=== PATIENT | male | born 1990 | race African-American/Black ===

== ENCOUNTER 2023-04-03 00:48 | Emergency (ER) | payer BC, SELFPAY ==
[2023-04-03 00:53] VITALS: BP 134/83; PULSE 78; RESP 18; TEMP 36.8; O2SAT 99; BMI 37.0
--- NOTE | 2023-04-03 01:05 | PC.NURSE ---
pt presents to ED because patient states that on monday he was on break at work and there was a [place] that had been cut and the roots were sticking up out of ground. patient tripped and scrapped left calf on roots. patient currently has bruising, swelling, abrasions, and warmth to left calf. patient denies workmans comp claim.
--- NOTE | 2023-04-03 01:16 | ED.LOWEXI1 ---
HPI - Extremity Injury (Lower) General Chief Complaint: Extremity Injury, Lower Stated Complaint: LEFT LEG INJURY Time Seen by Provider: 04/03/23 00:58 Source: patient Mode of arrival: walk-in Limitations: no limitations History of Present Illness HPI Narrative: patient states he fell and struck his left leg against tree roots. Developed a large amount of swelling and bruising of the leg. States the swelling has gone down. Tonight his family seen the leg and were concerned that there was still some swelling and wanted him to have it checked. States it feels warm to him and he still has some pain Related Data Home Medications Medication Instructions Recorded Confirmed No Known Home Medications 04/03/23 04/03/23 Allergies Allergy/AdvReac Type Severity Reaction Status Date / Time No Known Drug Allergies Allergy Verified 04/03/23 00:56 Review of Systems ROS Status of ROS 10 or more systems reviewed and unremarkable except as noted in history and below Exam Constitutional Vital Signs, click to edit/add: Last Vital Signs Temp 98.2 F 04/03/23 00:53 Pulse 78 04/03/23 00:53 Resp 18 04/03/23 00:53 BP 134/83 04/03/23 00:53 Pulse Ox 99 04/03/23 00:53 O2 Del Method Room Air 04/03/23 00:53 Common normals: no apparent distress, average body habitus, oriented x3, no limitations and healthy appearing Eye Common normals: EOMs intact bilaterally and conjunctivae normal Respiratory Common normals: normal respiratory effort, no retractions and no use of accessory muscles Extremity Other: faint ecchymosis and mild swelling of left lower leg just lateral to the kemp. Mild tenderness at best. Not warm or erythematous Neuro Common normals: oriented x3, CN's II-XII intact bilaterally, moves all extremities, no focal motor deficits and no sensory deficits noted Psych Appearance: grossly normal Course Vital Signs Vital signs: Vital Signs Temperature 98.2 F 04/03/23 00:53 Pulse Rate 78 04/03/23 00:53 Respiratory Rate 18 04/03/23 00:53 Blood Pressure 134/83 04/03/23 00:53 Pulse Oximetry 99 04/03/23 00:53 Oxygen Delivery Method Room Air 04/03/23 00:53 Temperature 98.2 F 04/03/23 00:53 Pulse Rate 78 04/03/23 00:53 Respiratory Rate 18 04/03/23 00:53 Blood Pressure 134/83 04/03/23 00:53 Pulse Oximetry 99 04/03/23 00:53 Oxygen Delivery Method Room Air 04/03/23 00:53 MDM - Extremity Injury (Lower) MDM Narrative Medical decision making narrative: patient fell sustaining a contusion left leg last week. Patient states the swelling has gone down significantly but tonight when he was wearing shorts and family see his leg they were concern about the swelling having not resolved completely and recommended he have it checked out. exam with mild tenderness. Resolving ecchymosis. No findings of infection on inspection and labs c/w no infection as well. Patient reassured and discharged to follow up with his family doctor Discharge Plan Discharge Chief Complaint: Extremity Injury, Lower Clinical Impression: Contusion of left lower extremity Patient Disposition: Home, Self-Care Prescriptions / Home Meds: No Action No Known Home Medications Instructions: Contusion in Adults (ED) Additional Instructions: follow up with your doctor in 2-3 days for recheck Stand Alone Forms: Portal Instructions Referrals: LUCIANA HER [Primary Care Provider] - 1 week
[2023-04-03 01:38] LABS: Basophils Percent Auto 0.3 % (0.2-2.0); Eosinophils Absolute Auto 0.1 10^3/uL (0.0-0.7); Eosinophils Percent Auto 1.2 % (0.9-7.0); Hematocrit 44.4 % (42.0-54.0); Hemoglobin 15.3 g/dL (14.0-18.0); Immature Granulocytes Abs Auto 0.01 10^3/uL (0.00-0.03); Immature Granulocytes Pct Auto 0.1 % (0.0-0.5); Lymphocytes Percent Auto 44.2 % (20.5-60.0); Mean Corpuscular HGB Conc 34.5 g/dL (29.9-35.2); Mean Corpuscular Hemoglobin 27.8 pg (25.9-34.0); Mean Corpuscular Volume 80.7 fL (80.0-94.0); Mean Platelet Volume 9.7 fL (9.5-13.5); Monocytes Absolute Auto 0.5 10^3/uL (0.3-0.8); Monocytes Percent Auto 7.2 % (1.7-12.0); Neutrophils Absolute Auto 3.2 10^3/uL (1.4-6.5); Platelet Count 254 10^3/uL (150-450); Red Cell Distribution Width 12.4 % (11.0-15.0); White Blood Count 6.9 10^3/uL (4.0-11.0)
[2023-04-03 01:47] LABS: Anion Gap 10.5; BUN Creatinine Ratio 16.7; C Reactive Protein <0.2 mg/dL (<=1.0); Calcium 8.2 mg/dL (8.5-10.1); Carbon Dioxide 31.1 mmol/L (21.0-32.0); Chloride 103 mmol/L (98-107); Estimated GFR (African America >60 (>=60); Estimated GFR (Non-African Ame >60 (>=60); Glucose 124 mg/dL (74-106); Potassium 3.6 mmol/L (3.5-5.1); Sodium 141 mmol/L (136-145)
== END 2023-04-03 02:04 | disposition home or self-care (01) ==
PROVIDERS: Emergency Provider Internal Medicine; PCP Family Medicine
DX: S80.12XA Contusion of left lower leg, initial encounter (principal); W19.XXXA Unspecified fall, initial encounter
CPT/HCPCS: 36415; 80048; 85025; 86140; 99283

== ENCOUNTER 2025-03-08 21:28 | Emergency (ER) | payer BC, SELFPAY ==
[2025-03-08 21:32] VITALS: BP 124/82; PULSE 69; TEMP 37.2; O2SAT 99; BMI 38.7
--- OUTSIDE RECORDS SUMMARY | 2025-03-08 21:41 | XMS_ITS | Patient Health Record ---
Author Organization [facility] es Address [address] [place] [address] Support Name Relationship Address Phone HOODJAMES Emergency Contact , [place] Unavail able TRISH MORATAYA Guarantor Unknown [phone] Allergies No Known Allergies Reason For Referral No Information Medications Medication SIG (Take, Route, Frequency, Duration) Notes Start Date End Date Status Dopmupfc-Cuqywdzex-HN 3.5-51663-3 4 drops into affected ear Otic Three times a day; Duration: 5 days 05/17/2023 Active Social History Tobacco Use: Social History Observation Description Date Details (start date - stop date) Never Smoker NA - NA Tobacco Screen: Question Answer Notes Are you a: never smoker Alcohol Screening: Question Answer Notes Did you have a drink containing alcohol in the p ast year? No Points 0 Interpretation Negative Plan Of Treatment No Information Insurance Providers Payer Name Payer Address Payer Phone Subscriber Number Group Number Insured Name Patient Relationship to Insured Coverage Start Date Coverage End Date ANTHEM Primary [address] [place] [address] [id number] TRISH MORATAYA Self - patient is the insured 3 Medical (General) History Surgical History Surgery Date(Month/Year) tonsillectomy meniscus- L L hand Hospitalization History Reason Date(Month/Year) dehydration pneumonia see surgery above
--- OUTSIDE RECORDS SUMMARY | 2025-03-08 21:41 | XMS_ITS | Encounter Summary ---
Author Organization [facility] Address [address] [facility] [place] [address] Care Team Providers Care Tube Backer Name Role Phone Allyn Pichardo MD Primary Care Provider [phone] Encounter Details Date Type Department Care Team (Late st Contact Info) Description 09/25/2024 [facility] [address] [place] [phone] Allyn Pichardo MD [address] [place] [address] Social History Tobacco Use Types Packs/Day Years Used Date Smoking Tobacco: Never Smokeless Tobacco: Never B1300 Health Literacy Answer Date Recor ded How often do you need to hav e someone help you when you read instructions, pamphlets, or other written material from your doctor or pharmacy? Never 02/27/2024 Social Connection and Isolat ion Panel [NHANES] Answer Date Recorded In a typical week, how many times do you talk on the phone with family, friends, or neighbors? More than three times a week 02/27/2024 How often do you get togethe r with friends or relatives? More than three times a week 02/27/2024 How often do you attend [facility] or pentecostalism services? 1 to 4 times per year 02/27/2024 Do you belong to any clubs o r organizations such as scientologist groups, unions, fraternal or athletic groups, or school groups? No 02/27/2024 Attends Club or Organization Meetings Not on nguyen e 02/27/2024 Are you , , di vorced, , never , or living with a partner? 02/27/2024 AUDIT-C Answer Date Recorded Q1: How often do you have a drink containing alcohol? Never 02/27/2024 Q2: How many drinks containi ng alcohol do you have on a typical day when you are drinking? Patient does not drink Q3: How often do you have si x or more drinks on one occasion? Never 02/27/2024 Overall Financial Resource Strain (CARDIA) Answe r Date Recorded How hard is it for you to pa y for the very basics like food, housing, medical care, and heating? Very hard 02/27/2024 [facility] of Occupat ional [place] [facility] - Occupational Stress Questionnaire Answer Date Recorded Do you feel stress - tense, restless, nervous, or anxious, or unable to sleep at night because your mind is troubled all the time - these days? Only a little 02/27/2024 Exercise Vital Sign Answer Date Recorde d On average, how many days pe r week do you engage in moderate to strenuous exercise (like a brisk walk)? 4 days 02/27/2024 On average, how many minutes do you engage in exercise at this level? 10 min 02/27/2024 Hunger Vital Sign Answer Date Recorded Within the past 12 months, y ou worried that your food would run out before you got the money to buy more. Sometimes true Within the past 12 months, t he food you bought just didn't last and you didn't have money to get more. Often true PRAPARE - Transportation Answer Date Re corded In the past 12 months, has l ack of transportation kept you from medical appointments or from getting medications? No 02/04 In the past 12 months, has l ack of transportation kept you from meetings, work, or from getting things needed for daily living? No 02/27/2024 Housing Stability Vital Sign Answer Thomas e Recorded In the last 12 months, was t here a time when you were not able to pay the mortgage or rent on time? Yes 02/27/2024 In the past 12 months, how m any times have you moved where you were living? 0 02/27/2024 At any time in the past 12 m [facility], were you homeless or living in a chcf (including now)? No 02/27/2024 Sex and Gender Information Value Date Recorded Sex Assigned at Male 02/27/2024 4:32 AM EDT Legal Sex Male 6:48 PM EDT Gender Identity Male 02/27/2024 4:32 AM EDT Sexual Orientation Straight 02/27/2024 4: 32 AM EDT documented as of this encounter Plan of Treatment Not on file documented as of this encounter Visit Diagnoses Not on filedocumented in this encounter Care Teams Tube Backer Relationship Specialty Start Date End Date Allyn Pichardo MD [address] [place] [address] PCP - General Family Medicine 10/11/22 documented as of this encounter
--- OUTSIDE RECORDS SUMMARY | 2025-03-08 21:41 | XMS_ITS | Encounter Summary ---
Author Organization [facility] Address [address] [facility] [place] [address] Care Team Providers Care Engine Assembly Supervisor Name Role Phone Allyn Pichardo MD Primary Care Provider [phone] Encounter Details Date Type Department Care Team (Late st Contact Info) Description 09/24/2024 [facility] [address] [place] [phone] Allyn Pichardo MD [address] [place] [address] Social History Tobacco Use Types Packs/Day Years [...] week 02/27/2024 How often do you attend [facility] or latter-day services? 1 to 4 times per year 02/27/2024 Do you belong to any clubs o r organizations such as cheondoism groups, unions, fraternal or athletic groups, or [...] medical care, and heating? Very hard 02/27/2024 [facility] of Occupat ional [facility] - Occupational Stress Questionnaire Answer Date Recorded [...] any time in the past 12 m [facility], were you homeless or living in a penitentiary (including now)? No 02/27/2024 Sex and Gender [...] on filedocumented in this encounter Care Teams Engine Assembly Supervisor Relationship Specialty Start Date End Date Allyn Pichardo MD [address] [place] [address] PCP - General Family Medicine 10/11/22 documented as of this encounter
--- OUTSIDE RECORDS SUMMARY | 2025-03-08 21:41 | XMS_ITS | Clinical Summary ---
Author Organization [facility] Address [address] [facility] [place] [address] Care Team Providers Care Hog Killer Name Role Phone Allyn Pichardo MD Primary Care Provider [phone] Allergies No known active allergies Medications No known medications Active Problems Problem Noted Date Diagnosed Date Acute seasonal allergic rhinitis due to pollen 0 02/14/2024 Morbid (severe) obesity due to excess calories 0 02/14/2024 Esophageal reflux 12/26/2007 Other allergic rhinitis 12/26/2007 Immunizations Immunization Administration Dates Next Due DTaP, Unspecified 12/29/1993,03/12/1993,01/11/19 93,1992 Hib / Hep B 12/29/1993,03/12/1993,01/11/1993 ,1992 IPV 12/29/1993,01/11/1993,1992 MMR 01/26/2005,12/29/1993 Family History Relation Name Status Comments Father Alive Mother Alive Social History Tobacco Use Types Packs/Day Years Used Date Smoking Tobacco: Never Smokeless Tobacco: Never Tobacco Cessation:Counseling Given: Not Answered B1300 Health Literacy Answer Date Recor ded [...] week 02/27/2024 How often do you attend chur or sabianism services? 1 to 4 times per year 02/27/2024 Do you belong to any clubs o r organizations such as uatsdin groups, unions, fraternal or athletic groups, or [...] medical care, and heating? Very hard 02/27/2024 [facility] of Occupat ional Health - Occupational Stress Questionnaire Answer Date Recorded [...] any time in the past 12 m [facility], were you homeless or living in a [place] [facility] [place] (including now)? No 02/27/2024 Sex and Gender Information Value Date Recorded Sex Assigned at Male 02/27/2024 4:32 AM EDT Legal Sex Male 6:48 PM EDT Gender Identity Male 02/27/2024 4:32 AM EDT Sexual Orientation Straight 02/27/2024 4: 32 AM EDT Last Filed Vital Signs Vital Sign Reading Time Taken Comments Blood Pressure 124/70 02/27/2024 8:33 AM EDT Pulse 75 02/27/2024 8:33 AM EDT Temperature - - Respiratory Rate - - Oxygen Saturation 97% 02/27/2024 8:33 AM EDT Inhaled Oxygen Concentration - - Weight 120 kg (265 lb) 02/27/2024 8:33 AM EDT Height 177.8 cm (5' 10 ) 02/27/2024 8:33 AM EDT Body Mass Index 38.02 02/27/2024 8:33 AM EDT Plan of Treatment Health Maintenance Due Date Last Done Comments Influenza Vaccine (#1) 2025 Insurance BS Care Teams Hog Killer Relationship Specialty Start Date End Date Allyn Picahrdo MD [address] [place] [address] PCP - General Family Medicine 10/11/22
--- OUTSIDE RECORDS SUMMARY | 2025-03-08 21:41 | XMS_ITS | Encounter Summary ---
Author Organization [facility] Address [address] [facility] [place] [address] Care Team Providers Care Fretted Instruments Inspector Name Role Phone Allyn Pichardo MD Primary Care Provider [phone] Encounter Details Date Type Department Care Team (Late st Contact Info) Description 12/05/2024 Abstract [facility] [address] [place] [phone] Allyn Pichardo MD [address] [place] [address] Social History Tobacco Use Types Packs/Day Years [...] week 02/27/2024 How often do you attend [facility] or zoroastrianism services? 1 to 4 times per year 02/27/2024 Do you belong to any clubs o r organizations such as christianity groups, unions, fraternal or athletic groups, or [...] medical care, and heating? Very hard 02/27/2024 [facility] of Occupat ional [facility] - Occupational Stress Questionnaire Answer Date [...] any time in the past 12 m [facility], were you homeless or living in a long-term (including now)? No 02/27/2024 Sex and Gender [...] on filedocumented in this encounter Care Teams Fretted Instruments Inspector Relationship Specialty Start Date End Date Allyn Pichardo MD [address] [place] [address] PCP - General Family Medicine 10/11/22 documented as of this encounter
--- OUTSIDE RECORDS SUMMARY | 2025-03-08 21:41 | XMS_ITS | Encounter Summary ---
Author Organization [facility] Address [address] [facility] [place] [address] Care Team Providers Care Cullet Trucker Name Role Phone Allyn Pichardo MD Primary Care Provider [phone] Encounter Details Date Type Department Care Team (Late st Contact Info) Description 09/24/2024 Abstract [facility] [address] [place] [phone] Allyn Pichardo MD [address] [place] [address] Social History Tobacco Use Types Packs/Day Years [...] week 02/27/2024 How often do you attend [facility] or rastafarian services? 1 to 4 times per year 02/27/2024 Do you belong to any clubs o r organizations such as alevism groups, unions, fraternal or athletic groups, or [...] medical care, and heating? Very hard 02/27/2024 [facility] of Occupat ional [facility] - Occupational Stress Questionnaire Answer [...] any time in the past 12 m [facility], were you homeless or living in a detention (including now)? No 02/27/2024 Sex and Gender [...] on filedocumented in this encounter Care Teams Cullet Trucker Relationship Specialty Start Date End Date Allyn Pichardo MD [address] [place] [address] PCP - General Family Medicine 10/11/22 documented as of this encounter
--- OUTSIDE RECORDS SUMMARY | 2025-03-08 21:42 | XMS_ITS | CCD ---
Author Organization [facility] Care Team Providers Care Rn Lvn Name Role Phone ALLYN HER Primary Care Physician PABLITO BASS Attending Unavailable Allyn Her MD Primary Care Provider Neil Hutchison Attending Unavailable Clemente RODRIGUEZ Attending Clemente Iyer Attending Clemente Iyer Attending Clemente Iyer Attending Unavailable Neil Hutchison Attending Unavailable Neil Hutchison Attending Unavailable Allergies Allergy Classification Reported Allergen(s) Allergy Type Date of Onset Reaction(s) Facility (6 sources) Mometasone; Translations: [mometasone nasal] Drug Allergy Irritation (qualifier value) [facility] (3 sources) No Known Medication Allergies; Translations: [No Known Medication Allergies] Propensity to adverse reactions (disorder) [facility] Repository Medications Current Medications Medication Drug Class(es) Dates Sig (Normalized) Sig (Original) cephalexin 500 mg oral capsule (2 sources) Cephalosporin Antibacterial Start: 12-04-2024 End: 12-11-2024 take 1 capsule by mouth four times daily Keflex 500 mg Cap 500 mg = 1 cap(s), Oral, QID, X 7 day(s), # 28 cap(s), Refills(s) 0, Pharmacy: [facility]/pharmacy #[id number], 180.3, cm, 12/04/24 16:57:00 EDT, Height/Length Dosing, 125, kg, 12/04/24 16:57:00 EDT, Weight Dosing Start Date: 12/04/24 Stop Date: 12/11/24 Status: Ordered Quantity: 28.0 Unit: cap(s) Repeat number: 1 Start: 08-05-2024 End: 08-10-2024 take 1 capsule by mouth twice daily at mealtime Keflex 500 mg Cap 500 mg = 1 cap(s), Oral, BID, start with first meal after procedure, X 5 day(s), # 10 cap(s), Refills(s) 0, [id number] 180, cm, 08/05/24 12:50:00 EST, Height/Length Dosing, 125, kg, 08/05/24 12:50:00 EST, Weight Dosing Start Date: 08/05/24 Stop Date: 08/10/24 Status: Ordered doxycycline hyclate 100 mg oral tablet (1 source) Tetracycline-class Drug Start: 12-04-2024 End: 12-11-2024 take 1 tablet by mouth every twelve hours doxycycline hyclate 100 mg Tab 100 mg = 1 tab(s), Oral, q12hr, X 7 day(s), # 14 tab(s), Refills(s) 0, [id number] 180.3, cm, 12/04/24 16:57:00 EDT, Height/Length Dosing, 125, kg, 12/04/24 16:57:00 EDT, Weight Dosing Start Date: 12/04/24 Stop Date: 12/11/24 Status: Ordered Quantity: 14.0 Unit: tab(s) Repeat number: 1 hydrOXYzine hydrochloride 25 mg oral tablet (2 sources) Antihistamine Start: 09-23-2024 take 1 tablet by mouth four times daily as needed for anxiety hydrOXYzine hydrochloride 25 mg Tab 25 mg = 1 tab(s), Oral, QID, PRN for anxiety, # 20 tab(s), Refills(s) 0, [id number], 180, cm, 09/23/24 16:11:00 EDT, Height/Length Dosing, 125, kg, 09/23/24 16:11:00 EDT, Weight Dosing Start Date: 09/23/24 Status: Ordered Quantity: 20.0 Unit: tab(s) Repeat number: 1 Problems Problem Classification Problem Date Documented Date Episodic/Chronic Anxiety disorders (1 source) Anxiety disorder; Translations: [Anxiety disorder, unspecified] Onset: 09-23-2024 Chronic Cardiac dysrhythmias (1 source) Palpitations; Translations: [Palpitations] Onset: 09-23-2024 Episodic Contraceptive and procreative management (3 sources) Patient encounter status; Translations: [Encounter for other general counseling and advice on contraception] Onset: 08-05-2024 02-27-2024 Episodic Diseases of mouth; excluding dental (1 source) Recurrent aphthous ulcer; Translations: [Recurrent oral aphthae] Onset: 11-13-2021 Episodic Esophageal disorders (3 sources) Gastroesophageal reflux disease; Translations: [Gastro-esophageal reflux disease without esophagitis] Onset: 12-26-2007 02-14-2024 Chronic Other lower respiratory disease (1 source) Dyspnea; Translations: [Shortness of breath] Onset: 09-23-2024 Episodic Other nutritional; endocrine; and metabolic disorders (5 sources) Obesity caused by energy imbalance; Translations: [Morbid (severe) obesity due to excess calories] Onset: 02-14-2024 02-27-2024 Chronic Other upper respiratory disease (5 sources) Allergic rhinitis due to pollen; Translations: [Allergic rhinitis due to pollen] Onset: 02-14-2024 02-27-2024 Chronic Other upper respiratory disease (3 sources) Allergic rhinitis; Translations: [Other allergic rhinitis] Onset: 12-26-2007 02-14-2024 Chronic Skin and subcutaneous tissue infections (1 source) Cellulitis; Translations: [Cellulitis, unspecified] Onset: 12-04-2024 Episodic Results Test Name Value Interpretation Reference Range Facility ED Clinical Summaryon 2024 ED Clinical Summary ED Clinical Summary [place] [id number] ED Clinical Summary Person Information Name: CRISPIN MORATAYA Noah Rhina/[facility] Age: 34 Years : 1990 Sex: Male Language: Sinhala PCP: ALLYN HER MD Marital Status: Phone: [phone] Visit Id: Visit Reason: Skin problem; INSECT BITE/ AND OR STING Speciality: Acuity: 4 Enc Type: Emergency Med Service: Emergency Arrival: 12/04/2024 16:51:15 Discharge: 12/04/2024 18:10:41 LOS: 000 01:19 Checkin: 12/04/2024 16:51:15 Checkout: 12/04/2024 18:10:41 Dispo Type: Home (Routine DC) EVENTS: Event Name Event Status Request Date/Time Start Date/Time Complete Date/Time Arrive Complete 12/04/2024 16:51:15 12/04/2024 16:51:15 12/04/2024 16:51:15 Document Home Meds Request 12/04/2024 16:51:15 Triage Complete 12/04/2024 16:51:15 12/04/2024 16:57:30 12/04/2024 16:57:30 Bed Assign Complete 12/04/2024 16:52:30 12/04/2024 16:52:30 12/04/2024 16:52:30 Dr Exam Complete 12/04/2024 16:52:30 12/04/2024 16:54:45 12/04/2024 16:54:45 RN Exam Complete 12/04/2024 16:52:30 12/04/2024 16:59:54 12/04/2024 16:59:54 Registration Complete 12/04/2024 16:54:45 12/04/2024 16:55:50 12/04/2024 16:55:50 Reg Complete Request 12/04/2024 16:55:50 Reg Bed Request Complete 12/04/2024 16:55:50 12/04/2024 16:55:50 12/04/2024 16:55:50 Discharge Complete 12/04/2024 17:53:26 12/04/2024 18:10:46 12/04/2024 18:10:46 Transfer Complete 12/04/2024 18:10:46 12/04/2024 18:10:46 12/04/2024 18:10:46 ADDRESS: [facility] [address] [facility] [phone] PHYS DOC NOTES: MEDICAL INFORMATION: Prescriptions Given: New Medications [id number], [address] [place] [phone], [phone] cephalexin (Keflex 500 mg Cap) 1 Capsules By Mouth 4 times a day for 7 Days. Refills: 0. doxycycline (doxycycline hyclate 100 mg Tab) 1 Tablets By Mouth every 12 hours for 7 Days. Refills: 0. Medications to Continue with No Changes Other Medications hydrOXYzine (hydrOXYzine hydrochloride 25 mg Tab) 1 Tablets By Mouth 4 times a day as needed for anxiety. Refills: 0. PATIENT EDUCATION INFORMATION: Instructions: Cellulitis, Adult Follow up: With: Address: When: ALLYN [facility] [place] [address] Business (1) In 3 days 12/07/2024 Comments: Call the office of your primary care doctor to arrange for follow-up within the above-stated timeframe. Follow-up with your primary care doctor about this ED visit. You should review your labs, imaging, and diagnoses from this ED visit with your primary care physician. There are occasionally non-emergent findings that require additional follow-up after your ED visit. If you were prescribed medications you should discuss possible side-effects and drug interactions with your pharmacist. Call 911 or go to the nearest Emergency Department if you develop any new or worsening symptoms. DIAGNOSIS: Cellulitis Normal [facility] ED Note-Physicianon 12-05-19 ED Note-Physician ED Note-Physician Basic Information Time Seen: Neil Hutchison DO 12/04/2024 16:54 Chief Complaint pt c/o possible insect bite on lower abdomen. RN assessed site - area is hard and warm to touch and reddened. Denies recent fevers. Denies N/V History of Present Illness 34-year-old male to the emergency department with chief complaint of possible bite to his lower abdomen. Patient reports he first noticed it yesterday. Denies any fever, sweats, chills. He reports the area is warm to the touch initially started as a small bump. Now has surrounding redness. He denies any medical problems. Review of Systems A 10 point review of systems is negative except as noted above. Medical and Surgical History: Reviewed and noted Social history: Lives at home Tobacco: Denies Physical Exam Vitals & Measurements T: 37.1 ???C(Oral) HR: 75(Peripheral) RR: 18 BP: 141/79 SpO2: 95% HT: 180.34 cm WT: 125 kg BMI: 38.43 VITALS: I have reviewed the triage vital signs. GENERAL: Well developed, well appearing adult in no acute distress. NEURO: Alert and oriented. Moves all extremities. Face is symmetric and expressive. EYES: PERRL. No scleral icterus or conjunctival injection. No discharge. HENT: Normocephalic, atraumatic. Hearing is grossly intact. Nares grossly patent and without discharge. Mucous membranes moist. NECK: No JVD. Patient moves neck without restriction. GI/: Abdomen is soft and non-tender. Normoactive bowel sounds. EXTREMITIES: Symmetric muscle bulk. No joint swelling. No clubbing, cyanosis, or deformity. SKIN: Warm and dry. Normal turgor. No rash or lesions appreciated. Dime sized area of induration without fluctuance right lower pannus. There is some surrounding erythema. PSYCH: Mood, affect, and interaction is appropriate to the setting. Medical Decision Making Patient has cellulitis surrounding a resolved abscess. No area of fluctuance to drain. Antibiotics. Return precautions. All questions were answered. The patient was discharged home. Assessment/Plan Cellulitis (L03.90: Cellulitis, unspecified) Orders: cephalexin, 500 mg = 1 cap(s), Oral, QID, X 7 day(s), # 28 cap(s), Refills(s) 0, Pharmacy: [facility]/pharmacy #[id number], 180.3, cm, 12/04/24 16:57:00 EDT, Height/Length Dosing, 125, kg, 12/04/24 16:57:00 EDT, Weight Dosing doxycycline, 100 mg = 1 tab(s), Oral, q12hr, X 7 day(s), # 14 tab(s), Refills(s) 0, Pharmacy: [facility]/pharmacy #[id number], 180.3, cm, 12/04/24 16:57:00 EDT, Height/Length Dosing, 125, kg, 12/04/24 16:57:00 EDT, Weight Dosing Disposition Plan Patient Discharge Condition Stable Discharge Disposition Home Discharge Prescription List Prescriptions doxycycline hyclate 100 mg Tab, 100 mg= 1 tab(s), Oral, q12hr Keflex 500 mg Cap, 500 mg= 1 cap(s), Oral, QID Follow-up With When Contact Information ALLYN HER In 3 days 12/07/2024 EDT [address] [place] [address]- Business (1) Additional Instructions: Call the office of your primary care doctor to arrange for follow-up within the above-stated timeframe. Follow-up with your primary care doctor about this ED visit. You should review your labs, imaging, and diagnoses from this ED visit with your primary care physician. There are occasionally non-emergent findings that require additional follow-up after your ED visit. If you were prescribed medications you should discuss possible side-effects and drug interactions with your pharmacist. Call 911 or go to the nearest Emergency Department if you develop any new or worsening symptoms. Patient Education Cellulitis, Adult Problem List/Past Medical History Ongoing No qualifying data Historical No qualifying data Procedure/Surgical History Hand, Meniscus, Tonsillectomy and adenoidectomy. Medications Inpatient No active inpatient medications Home doxycycline hyclate 100 mg Tab, 100 mg= 1 tab(s), Oral, q12hr hydrOXYzine hydrochloride 25 mg Tab, 25 mg= 1 tab(s), Oral, QID, PRN Keflex 500 mg Cap, 500 mg= 1 cap(s), Oral, QID Allergies mometasone nasal (Irritation) Social History Alcohol - Denies Alcohol Use, 12/04/2024 Never., 07/07/2024 Substance Abuse - Denies Substance Abuse, 12/04/2024 Never., 07/07/2024 Tobacco - Denies Tobacco Use, 12/04/2024 Never (less than 100 in lifetime) Tobacco Use:., 07/07/2024 Family History Arthritis: Grandparent. Diabetes mellitus type 2: Mother. Heart disease: Grandparent. Hypertension: Grandparent. IBS - Irritable bowel syndrome: Mother. Kidney stone: Grandparent. Lung cancer: Grandparent. Migraine: Mother. Lab Results No qualifying data available. Diagnostic Results No qualifying data available. Normal [facility] Comment on above: Result Comment: Elec tronically Signed By: Neil Hutchison DO.br\Date and Time Signed: 12/04/24 19:22 EDT ED Patient Summaryon 025 ED Patient Summary ED Patient Summary [place] [id number] Patient Discharge Instructions Person Information Name: CRISPIN MORATAYA Age: 34 Years MRN: [id number] Arrival Date: 12/04/2024 16:51:15 Discharge Diagnosis: Cellulitis Primary Care Physician: ALLYN HER MD Provider Information Primary Provider: Neil Hutchison DO Advanced Atmospheric Technician:None The exam and treatment you received in the Emergency Department were for an urgent problem and are not intended as complete care. It is important that you follow up with a doctor, nurse practitioner, or physician???s nurse's assistant for ongoing care. If your symptoms become worse or you do not improve as expected and you are unable to reach your usual health care provider, you should return to the Emergency Department. We are available 24 hours a day. CRISPIN MORATAYA has been given the following list of patient education materials, prescriptions and follow-up instructions: Follow-up Instructions: With: Address: When: ALLYN HER [address] [place] [id number] [employer] (1) In 3 days 12/07/2024 Comments: Call the office of your primary care doctor to arrange for follow-up within the above-stated timeframe. Follow-up with your primary care doctor about this ED visit. You should review your labs, imaging, and diagnoses from this ED visit with your primary care physician. There are occasionally non-emergent findings that require additional follow-up after your ED visit. If you were prescribed medications you should discuss possible side-effects and drug interactions with your pharmacist. Call 911 or go to the nearest Emergency Department if you develop any new or worsening symptoms. In the event that this physician does not participate in your insurance network, please consult with your insurance company to find a nearby participating provider. Patient Education Materials: Cellulitis, Adult A MESSAGE TO ALL PATIENTS REGARDING OPIOIDS PRESCRIPTION OPIOIDS: WHAT YOU NEED TO KNOW Prescription opioids can be used to help relieve [id number] pain and are often prescribed following a surgery or injury, or for certain health conditions. These medications can be an important part of the treatment but also come with serious risks. It is important to work with your healthcare provider to make sure you are getting the safest, most effective care. WHAT ARE THE RISKS AND SIDE EFFECTS OF OPIOID USE? Prescription opioids carry serious risks of addiction and overdose, especially with prolonged use. An opioid overdose, often marked by slowed breathing, can cause sudden . The use of prescription opioids can have a number of side effects as well, even when taken as directed: ??? Tolerance???meaning you might need to take more of the medication for the same pain relief ??? Physical dependence???meaning you have symptoms of withdrawal when a medication is stopped ??? Increased sensitivity to pain ??? Constipation ??? Nausea, vomiting, and dry mouth ??? Sleepiness and dizziness ??? Confusion ??? Depression ??? Low levels of testosterone that can result in lower sex drive, energy, and strength ??? Itching and sweating RISKS ARE GREATER WITH: ??? History of drug misuse, substance use disorder, or overdose ??? Mental health conditions (such as depression or anxiety) ??? Sleep apnea ??? Older age (65 years and older) ??? Avoid alcohol while taking prescription opioids. Also, unless specifically advised by your health care provider, medications to avoid include: ??? Benzodiazepines (such as Xanax or Valium) ??? Muscle relaxants (such as Soma or Flexeril) ??? Hypnotics (such as Ambien or Lunesta) ??? Other prescription opioids KNOW YOUR OPTIONS Talk to your health care provider about ways to manage your pain that don???t involve prescription opioids. Some of these options may actually work better and have fewer risks and side effects. Options may include: ??? Pain relievers such as acetaminophen, ibuprofen, and naproxen ??? Some medication that are also used for depression or seizures ??? Physical therapy and exercise ??? Cognitive behavioral therapy, a psychological, goal-directed approach, in which patients learn how to modify physical, behavioral, and emotional triggers of pain and stress. IF YOU ARE PRESCRIBED OPIOIDS FOR PAIN: ??? Never take opioids in greater amounts or more often than prescribed. ??? Follow up with your primary health care provider. o Work together to create a plan on how to manage your pain. o Talk about ways to help manage your pain that don???t involve prescription opioids. o Talk about any and all concerns and side effects. ??? Help prevent misuse and abuse o Never sell or share prescription opioids. o Never use another person???s prescription opioids. ??? Store prescription (more content not included)... Normal [facility] ED Note-Physicianon 09-25-19 ED Note-Physician ED Note-Physician Basic Information Time Seen: Armani Tao PA-C 09/23/2024 18:07 Chief Complaint pt reports anxiety/sob/palpitati ons/and fatigue. states grandpa recently and has gone through a lot of stress. History of Present Illness Patient is a 34-year-old male that presents today for evaluation of his shortness of breath, heart palpitations, anxiety and fatigue. Patient states that his grandpa just recently and he has been going through a lot of stress. He will get moments of anxiousness and will feel short of breath especially when he is trying to take a big deep breath and feel as though he has heart palpitations. Has been feeling a little bit more rundown. Denies chest pain. Denies any nausea, vomiting, abdominal pain. Has never had this in the past. Review of Systems No other aggravating or relieving factors no other associated symptoms no other prior treatments or complaints. Family: Reviewed and noncontributory Social: lives at home Review of systems negative unless otherwise specified in the HPI. Physical Exam Vitals & Measurements T: 36.6 ???C(Oral) HR: 102(Peripheral) RR: 20 BP: 155/93 SpO2: 98% HT: 180 cm WT: 125 kg BMI: 38.58 General: The patient appears well and in no apparent distress. Patient is resting comfortably on cart. Skin: Warm, dry, no pallor noted. Head: Normocephalic, atraumatic Neck: No JVD Eye: PERRLA, EOMI ENT: Moist mucus membranes Cardiovascular: Regular rate and rhythm. Normal peripheral perfusion Respiratory: CTA bilaterally. No respiratory distress no accessory muscle use no obvious audible wheezing Chest Wall: no deformity Musculoskeletal: normal ROM, no deformity, no swelling GI: Soft no obvious distention. No rebound or rigidity. No guarding. No tenderness. Neurological: A&O moves all extremities equal strength and symmetry Psychiatric: Cooperative and appropriate Medical Decision Making Patient is a 34-year-old male who presents today for evaluation of his shortness of breath, heart palpitations, anxiety and fatigue. He just recently lost his grandpa and has been going through a lot of stress. He will get moments where he feels very anxious and will feel short of breath especially takes a big deep breath and has heart heart palpitations. And has been going through a lot of stress. He will get moments where he feels very anxious and will feel short of breath especially takes a big deep breath and has heart palpitations. Denies chest pain. Denies any other systemic signs or symptoms. On exam patient is afebrile nontoxic-appearing. SpO2 98% on room air. CTA to bilateral lung porras. RRR. Abdomen soft nontender. No swelling of bilateral lower extremities. PERRLA, EOMI. Unremarkable neuroexam. Labs are WNL including 0 and 1 hour troponin. EKG demonstrates NSR. Single view chest x-ray interpreted by myself is negative for any acute cardiopulmonary process. Discussed with the patient and unsure of the exact etiology of his symptoms at this time, however, I do believe he does have an anxiety component to this given he has been through a lot recently. Will provide him with hydroxyzine for him to try for these episodes. He will be discharged home with close follow-up with his PCP and I did provide him with cardiology to follow-up with if this continues to be a problem. Return to ED precautions were reviewed with the patient at length. Assessment/Plan Anxiety (F41.9: Anxiety disorder, unspecified) Palpitations (R00.2: Palpitations) Shortness of breath (R06.02: Shortness of breath) Orders: hydrOXYzine, 25 mg = 1 tab(s), Tab, Oral, Once, Stop date 09/23/24 19:21:00 EDT, STAT, Start date 09/23/24 19:21:00 EDT, 09/23/24 19:21:00 EDT hydrOXYzine, 25 mg = 1 tab(s), Oral, QID, PRN for anxiety, # 20 tab(s), Refills(s) 0, Pharmacy: [facility]/pharmacy #[id number], 180, cm, 09/23/24 16:11:00 EDT, Height/Length Dosing, 125, kg, 09/23/24 16:11:00 EDT, Weight Dosing Medications Administered Given hydrOXYzine hydrochloride 25 mg Tab, 25 mg, Oral Disposition Plan Patient Discharge Condition Stable Discharge Disposition Home Discharge Prescription List Prescriptions hydrOXYzine hydrochloride 25 mg Tab, 25 mg= 1 tab(s), Oral, QID, PRN Follow-up With When Contact Information Rubén Kramer In 3 days 09/26/2024 EDT [address] [place] [address]- [phone] Business (1) Additional Instructions: ALLYN HER In [address] [place] [address]- Business (1) Additional Instructions: Patient Education Managing Anxiety, Adult Shortness of Breath, Adult Palpitations Attestation Patient seen and evaluated by the physician nurse's assistant. Attending physician was present in the emergency department and supervised care. This visit was performed by both the physician and an APC. I performed all aspects of the MDM as documented. This report was transcribed using voice recognition software. Every effort was made to ensure accuracy, however, inadvertently comput (more content not included)... Normal [facility] Comment on above: Result Comment: Elec tronically Signed By: Armani Tao PA-C\.br\Date and Time Signed: 09/23/24 21:15 EDT\.br\Electronically Co-Signed By: Neil Hutchison DO\.br\Date and Time Co-Signed: 09/24/24 07:00 EDT XR Chest Single Viewon 09-24 XR Chest Single View Exam Date/Time: 09/23/2024 17:31 EDT Reason for Exam: Chest pain Report IMPRESSION: NO RADIOGRAPHIC EVIDENCE OF ACUTE INTRATHORACIC PROCESS. EXAM: XR Chest Single View History: Chest pain Technique: Portable AP view of the chest. Comparison: None available Findings: The cardiomediastinal silhouette is within normal limits. No pneumothorax, pleural effusion, or consolidation. No acute osseous abnormality. Ordering Provider: Neil Hutchison FINAL REPORT Dictated: 09/24/2024 7:18 am Viktor Chapin DO Signed (Electronic Signature): 09/24/2024 7:18 am Signed by: Viktor Chapin DO Transcribed by: HUMA Technologist: SHIRA Kelly [facility] BMPon 09-23-2024 Anion gap [Moles/Vol] 11 mmol/L Normal 6-16 [facility] Comment on above: Performed By: #### [id number] #### [facility] [address] [place] [address] Calcium [Mass/Vol] 9.1 mg/dL Normal 8.9-11.1 [facility] Comment on above: Performed By: #### [id number] #### [facility] [address] [place] [address] Chloride [Moles/Vol] 104 mmol/L Normal 101-111 [facility] Comment on above: Performed By: #### [id number] #### [facility] [address] [place] [address] CO2 [Moles/Vol] 26 mmol/L Normal 21-31 [facility] Comment on above: Performed By: #### [id number] #### [facility] [address] [place] [address] Creatinine [Mass/Vol] 0.8 mg/dL Normal 0.5-1.3 [facility] Comment on above: Performed By: #### 2 [id number] #### [facility] [address] [place] [address] Glucose [Mass/Vol] 114 mg/dL Normal 55-199 [facility] Comment on above: Performed By: #### 2 [id number] #### [facility] [address] [place] [address] Potassium [Moles/Vol] 3.7 mmol/L Normal 3.5-5.3 [facility] Comment on above: Performed By: #### 2 [id number] #### [facility] [address] [place] [address] Sodium [Moles/Vol] 137 mmol/L Normal 135-145 [facility] Comment on above: Performed By: #### 2 [id number] #### [facility] [address] [place] [address] Urea nitrogen [Mass/Vol] 10 mg/dL Normal 5-21 [facility] Comment on above: Performed By: #### 2 [id number] #### [facility] [address] [place] [address] Urea nitrogen/Creatinine [Mass ratio] 12 No Units Normal 10-20 [facility] Comment on above: Performed By: #### 2 [id number] #### [facility] [address] [place] [address] CBC w/ Auto Diffon 5 Basophils/100 WBC (Bld) 0.3 % Normal 0.0-2.0 [facility] Comment on above: Performed By: #### 2 [id number] #### [facility] [address] [place] [address] Basophils/Leukocytes Auto (Bld) [Pure # fraction] 0.0 E9/L Normal 0.0-0.2 [facility] Comment on above: Performed By: #### 2 [id number] #### [facility] [address] [place] [address] Eosinophils (Bld) [#/Vol] 0.1 E9/L Normal 0.0-0.5 [facility] Comment on above: Performed By: #### 2 [id number] #### [facility] [address] [place] [address] Eosinophils/100 WBC (Bld) 0.7 % Normal 0.0-8.0 [facility] Comment on above: Performed By: #### 2 [id number] #### [facility] [address] [place] [address] Erythrocyte distribution width (RBC) [Ratio] 13.3 % Normal 10.9-14.2 [facility] Comment on above: Performed By: #### 2 [id number] #### [facility] [address] [place] [address] Hematocrit (Bld) [Volume fraction] 45.0 % Normal 37.7-49.0 [facility] Comment on above: Performed By: #### 2 [id number] #### [facility] [address] [place] [address] Hemoglobin (Bld) [Mass/Vol] 15.7 g/dL Normal 13.5-17.5 [facility] Comment on above: Performed By: #### 2 [id number] #### [facility] [address] [place] [address] Lymphocytes (Bld) [#/Vol] 2.4 E9/L Normal 1.0-4.0 [facility] Comment on above: Performed By: #### 2 [id number] #### [facility] [address] [place] [address] Lymphocytes/100 WBC (Bld) 28.5 % Normal 14.0-50.0 [facility] Comment on above: Performed By: #### 2 [id number] #### [facility] [address] [place] [address] MCH (RBC) [Entitic mass] 27.9 pg Normal 27.0-34.0 [facility] Comment on above: Performed By: #### 2 [id number] #### [facility] [address] [place] [address] MCHC (RBC) [Mass/Vol] 34.8 g/dL Normal 31.4-36.0 [facility] Comment on above: Performed By: #### 2 [id number] #### [facility] [address] [place] [address] MCV (RBC) [Entitic vol] 80.1 fL Normal 80.0-100.0 [facility] Comment on above: Performed By: #### 2 [id number] #### [facility] [address] [place] [address] Monocytes (Bld) [#/Vol] 0.5 E9/L Normal 0.2-1.0 [facility] Comment on above: Performed By: #### 2 [id number] #### [facility] [address] [place] [address] Neutrophils (Bld) [#/Vol] 5.4 E9/L Normal 2.0-7.5 [facility] Comment on above: Performed By: #### 2 [id number] #### [facility] [address] [place] [address] Neutrophils/100 WBC (Bld) 64.3 % Normal 36.0-75.0 [facility] Comment on above: Performed By: #### 2 [id number] #### [facility] [address] [place] [address] Platelet mean volume (Bld) [Entitic vol] 8.3 fL Normal 6.4-10.8 [facility] Comment on above: Performed By: #### 2 [id number] #### [facility] [address] [place] [address] Platelets (Bld) [#/Vol] 274.0 E9/L Normal 150.0-500.0 [facility] Comment on above: Performed By: #### 2 [id number] #### [facility] [address] [place] [address] RBC (Bld) [#/Vol] 5.6 E12/L Normal 4.3-5.9 [facility] Comment on above: Performed By: #### 2 [id number] #### [facility] [address] [place] [address] WBC corrected for nucl RBC Auto (Bld) [#/Vol] 8.5 E9/L Normal 4.0-11.0 [facility] Comment on above: Performed By: #### 2 [id number] #### [facility] [address] [place] [address] CHEMISTRYOrdered By: SYSTEM SYSTEM on 09-23-2024 Troponin HS 3.50 pg/mL Low 15.90 - 38.40 pg/mL [facility] Comment on above: Interpretive Data: T he 95% CI (Confidence Interval) PPV (Positive Predictive Value) for myocardial infarction in females is 38 pg/mL, in males 51 pg/mL. The results should be used in conjunction with clinical conditions of myocardial infarction. (Access High Sensitivity Troponin I Instructions For Use, [employer], January 2018) Anion gap [Moles/Vol] 11 mmol/L Normal 6 - 16 mEq/L R emisol Chem Calcium [Mass/Vol] 9.1 mg/dL Normal 8.9 - 11. 1 mg/dL [facility] Chloride [Moles/Vol] 104 mmol/L Normal 101 - 1 11 mmol/L [facility] CO2 [Moles/Vol] 26 mmol/L Normal 21 - 31 mmol/L [facility] Creatinine [Mass/Vol] 0.8 mg/dL Normal 0.5 - 1.3 mg/dL [facility] eGFR 121 mL/min/1.73 m2 Normal >=59mL/mi n/1. 73 m2 [facility] Glucose [Mass/Vol] 114 mg/dL Normal 55 - 199 mg/dL [facility] Potassium [Moles/Vol] 3.7 mmol/L Normal 3.5 - 5.3 mmol/L [facility] Sodium [Moles/Vol] 137 mmol/L Normal 135 - 145 mmol/L [facility] Troponin HS 3.40 pg/mL Low 15.90 - 38.40 pg/mL [facility] Comment on above: Interpretive Data: T he 95% CI (Confidence Interval) PPV (Positive Predictive Value) for myocardial infarction in females is 38 pg/mL, in males 51 pg/mL. The results should be used in conjunction with clinical conditions of myocardial infarction. (Access High Sensitivity Troponin I Instructions For Use, [employer], January 2018) Urea nitrogen [Mass/Vol] 10 mg/dL Normal 5 - 21 mg/dL [facility] Urea nitrogen/Creatinine [Mass ratio] 12 mg/mg Normal 10 - 20 [facility] COAGULATIONOrdered By: Karina Virk on 09-23-2024 aPTT Coag (PPP) [Time] 31.2 s Normal 25.1 - 36.5 second(s) [facility] Comment on above: Interpretive Data: P arameter 15 days - 4 weeks 1 - 5 months 6 - 11 months 1 - 5 years 6 - 10 years 11 - 17 years PTT Mean: 35.4 (27.6-45.6) Mean: 33.5 (24.8-40.7) Mean: 32.4 (25.1-40.7) Mean: 31.6 (24.0-39.2) Mean: 31.6 (26.9-38.7) Mean: 31.0 (24.6-38.4) Pediatric Reference ranges were obtained from a study by Dileep Yoder et al. prepared from 1437 samples obtained at 7 different centers using the same coagulation reagent and instrumentation as [facility]. Currently there are no coagulation studies available worldwide for children to 14 days, and no normal ranges. Heparin therapeutic range (represented by Anti-Factor Xa activity of 0.2 - 0.4 U/mL) corresponds to PTT of 56.6 - 109.0 sec. INR Coag (PPP) [Relative time] 1.01 {INR} Invalid Interpretation Code [facility] Comment on above: Interpretive Data: I NR results are specifically intended to assess patients stabilized on long-term Anticoagulation therapy suggested INR s Less Intensive Anticoagulation 2.0 3.0 Conventional Range 3.0 4.5 PT Coag (PPP) [Time] 11.3 s Normal 9.4 - 1 2.5 second(s) [facility] Comment on above: Interpretive Data: 1 5 days - 4 weeks 1 - 5 months 6 -11 months 1-5 years 6-10 years 11 -17 years Mean: 11.2 (9.5-12.6) Mean: 11.0 (9.7-12.8) Mean: 11.0 (9.8-13.0) Mean: 11.3 (9.9-13.4) Mean: 11.7 (10.0-14.6) Mean: 11.8 (10.0 - 14.1) Pediatric Reference ranges were obtained from a study by yaniv Pino al. prepared from 1437 samples obtained at 7 different centers using the same coagulation reagent and instrumentation as [facility]. Currently there are no coagulation studies available worldwide for children to 14 days, and no normal ranges. ED Clinical Summaryon 2024 ED Clinical Summary ED Clinical Summary [place] [id number] ED Clinical Summary Person Information Name: CRISPIN MORATAYA Noah Rhina/[facility] Age: 34 Years : 1990 Sex: Male Language: Sinhala PCP: ALLYN HER MD Marital Status: Phone: [phone] Visit Id: Visit Reason: Anxiety; Malaise; Shortness of breath; Palpitations; HARD TO BREATH, HEART BEATING FAST Speciality: Acuity: 3 Enc Type: Emergency Med Service: Emergency Arrival: 09/23/2024 16:07:42 Discharge: 09/23/2024 19:32:56 LOS: 000 03:25 Checkin: 09/23/2024 16:07:42 Checkout: 09/23/2024 19:32:56 Dispo Type: Home (Routine DC) EVENTS: Event Name Event Status Request Date/Time Start Date/Time Complete Date/Time Arrive Complete 09/23/2024 16:07:42 09/23/2024 16:07:42 09/23/2024 16:07:42 Document Home Meds Request 09/23/2024 16:07:42 Triage Complete 09/23/2024 16:07:42 09/23/2024 16:11:21 09/23/2024 16:11:21 EKG Complete 09/23/2024 16:10:17 09/23/2024 16:13:39 Pending Labs Complete 09/23/2024 16:13:55 09/23/2024 18:51:48 Lab Complete 09/23/2024 16:13:55 09/23/2024 17:43:32 X-Ray Complete 09/23/2024 16:13:55 09/23/2024 17:27:23 09/23/2024 17:31:55 Pending Labs Complete 09/23/2024 16:48:13 09/23/2024 16:48:13 09/23/2024 17:13:44 Lab Complete 09/23/2024 16:48:13 09/23/2024 16:48:13 09/23/2024 17:13:44 Registration Complete 09/23/2024 17:19:28 09/23/2024 17:19:28 09/23/2024 17:19:28 Reg Complete Request 09/23/2024 17:19:28 Reg Bed Request Complete 09/23/2024 17:19:29 09/23/2024 17:19:29 09/23/2024 17:19:29 Wet Read Request 09/23/2024 17:31:55 Bed Assign Complete 09/23/2024 18:04:01 09/23/2024 18:04:01 09/23/2024 18:04:01 Dr Exam Complete 09/23/2024 18:04:01 09/23/2024 18:07:33 09/23/2024 18:07:33 RN Exam Complete 09/23/2024 18:04:01 09/23/2024 19:32:33 09/23/2024 19:32:33 Registration Request 09/23/2024 18:07:33 Dr Exam Complete 09/23/2024 18:10:53 09/23/2024 18:10:53 09/23/2024 18:10:53 Pending Labs Complete 09/23/2024 19:09:47 09/23/2024 19:09:47 09/23/2024 19:09:48 Meds Admin Complete 09/23/2024 19:21:50 09/23/2024 19:29:43 Discharge Complete 09/23/2024 19:23:14 09/23/2024 19:33:01 09/23/2024 19:33:01 Transfer Complete 09/23/2024 19:33:01 09/23/2024 19:33:01 09/23/2024 19:33:01 ADDRESS: [facility] [address] [facility] [id number] PHYS DOC NOTES: MEDICAL INFORMATION: Prescriptions Given: New Medications [id number], [address], [place] [id number], [phone] hydrOXYzine (hydrOXYzine hydrochloride 25 mg Tab) 1 Tablets By Mouth 4 times a day as needed for anxiety. Refills: 0. PATIENT EDUCATION INFORMATION: Instructions: Managing Anxiety, Adult; Shortness of Breath, Adult; Palpitations Follow up: With: Address: When: Rubén Kramer [address] [place] [id number] [phone] Business (1) In 3 days 09/26/2024 With: Address: When: ALLYN HER [address] [place] [address] [phone] Business (1) In 3 days DIAGNOSIS: Anxiety; Palpitations; Shortness of breath Normal [facility] ED Patient Summaryon 025 ED Patient Summary ED Patient Summary [address] [address] Patient Discharge Instructions Person Information Name: CRISPIN MORATAYA Age: 34 Years Arrival Date: 09/23/2024 16:07:42 Discharge Diagnosis: Anxiety; Palpitations; Shortness of breath Primary Care Physician: ALLYN HER MD Provider Information Primary Provider: Neil Hutchison DO. Advanced Atmospheric Technician:Armani Tao PA-C. The exam and treatment you received in the Emergency Department were for an urgent problem and are not intended as complete care. It is important that you follow up with a doctor, nurse practitioner, or physician???s nurse's assistant for ongoing care. If your symptoms become worse or you do not improve as expected and you are unable to reach your usual health care provider, you should return to the Emergency Department. We are available 24 hours a day. CRISPIN MORATAYA has been given the following list of patient education materials, prescriptions and follow-up instructions: Follow-up Instructions: With: Address: When: Rubén Kramer [address] [place] [phone] Business (1) In 3 days 09/26/2024 With: Address: When: ALLYN HER [address] [place] [address] [phone] Business (1) In 3 days In the event that this physician does not participate in your insurance network, please consult with your insurance company to find a nearby participating provider. Patient Education Materials: Managing Anxiety, Adult; Shortness of Breath, Adult; Palpitations A MESSAGE TO ALL PATIENTS REGARDING OPIOIDS PRESCRIPTION OPIOIDS: WHAT YOU NEED TO KNOW Prescription opioids can be used to help relieve rcospzzx-pw-[id number] pain and are often prescribed following a surgery or injury, or for certain health conditions. These medications can be an important part of the treatment but also come with serious risks. It is important to work with your healthcare provider to make sure you are getting the safest, most effective care. WHAT ARE THE RISKS AND SIDE EFFECTS OF OPIOID USE? Prescription opioids carry serious risks of addiction and overdose, especially with prolonged use. An opioid overdose, often marked by slowed breathing, can cause sudden . The use of prescription opioids can have a number of side effects as well, even when taken as directed: ??? Tolerance???meaning you might need to take more of the medication for the same pain relief ??? Physical dependence???meaning you have symptoms of withdrawal when a medication is stopped ??? Increased sensitivity to pain ??? Constipation ??? Nausea, vomiting, and dry mouth ??? Sleepiness and dizziness ??? Confusion ??? Depression ??? Low levels of testosterone that can result in lower sex drive, energy, and strength ??? Itching and sweating RISKS ARE GREATER WITH: ??? History of drug misuse, substance use disorder, or overdose ??? Mental health conditions (such as depression or anxiety) ??? Sleep apnea ??? Older age (65 years and older) ??? Avoid alcohol while taking prescription opioids. Also, unless specifically advised by your health care provider, medications to avoid include: ??? Benzodiazepines (such as Xanax or Valium) ??? Muscle relaxants (such as Soma or Flexeril) ??? Hypnotics (such as Ambien or Lunesta) ??? Other prescription opioids KNOW YOUR OPTIONS Talk to your health care provider about ways to manage your pain that don???t involve prescription opioids. Some of these options may actually work better and have fewer risks and side effects. Options may include: ??? Pain relievers such as acetaminophen, ibuprofen, and naproxen ??? Some medication that are also used for depression or seizures ??? Physical therapy and exercise ??? Cognitive behavioral therapy, a psychological, goal-directed approach, in which patients learn how to modify physical, behavioral, and emotional triggers of pain and stress. IF YOU ARE PRESCRIBED OPIOIDS FOR PAIN: ??? Never take opioids in greater amounts or more often than prescribed. ??? Follow up with your primary health care provider. o Work together to create a plan on how to manage your pain. o Talk about ways to help manage your pain that don???t involve prescription opioids. o Talk about any and all concerns and side effects. ??? Help prevent misuse and abuse o Never sell or share prescription opioids. o Never use another person???s prescription opioids. ??? Store prescription opioids in a secure place and out of reach of others (this may include visitors, children, friends, and family). ??? Safely dispose of unused prescription opioids: Find your community drug take-back program or your pharmacy mail-back program, or flush them down the toilet, following guidance from the Food and Drug Administration (www.fda.gov/Drugs/Re sourcesForYou). ??? Visit www.cdc.go (more content not included)... Normal [facility] HEMATOLOGYOrdered By: SYSTEM SYSTEM on 09-23-2024 Basophils/100 WBC (Bld) 0.3 % Normal 0.0 - 2.0 % [facility] Basophils/Leukocytes Auto (Bld) [Pure # fraction] 0.0 E9/L Normal 0.0 - 0.2 E9/L [facility] Eosinophils (Bld) [#/Vol] 0.1 E9/L Normal 0.0 - 0.5 E9/L [facility] Eosinophils/100 WBC (Bld) 0.7 % Normal 0.0 - 8.0 % [facility] Erythrocyte distribution width (RBC) [Ratio] 13.3 % Normal 10.9 - 14.2 % [facility] Hematocrit (Bld) [Volume fraction] 45.0 % Normal 37.7 - 49.0 % [facility] Hemoglobin (Bld) [Mass/Vol] 15.7 g/dL Normal 13.5 - 17.5 gm/dL [facility] Lymphocytes (Bld) [#/Vol] 2.4 E9/L Normal 1.0 - 4.0 E9/L [facility] Lymphocytes/100 WBC (Bld) 28.5 % Normal 14.0 - 50.0 % [facility] MCH (RBC) [Entitic mass] 27.9 pg Normal 27.0 - 34.0 pg [facility] MCHC (RBC) [Mass/Vol] 34.8 g/dL Normal 31.4 - 36.0 gm/dL [facility] MCV (RBC) [Entitic vol] 80.1 fL Normal 80.0 - 100.0 fL [facility] Monocytes (Bld) [#/Vol] 0.5 E9/L Normal 0.2 - 1.0 E9/L [facility] Monocytes/100 WBC (Bld) 6.2 % Normal 4.0 - 14.0 % [facility] Neutrophils (Bld) [#/Vol] 5.4 E9/L Normal 2.0 - 7.5 E9/L [facility] Neutrophils/100 WBC (Bld) 64.3 % Normal 36.0 - 75.0 % [facility] Platelet mean volume (Bld) [Entitic vol] 8.3 fL Normal 6.4 - 10.8 fL [facility] Platelets (Bld) [#/Vol] 274.0 E9/L Normal 150.0 - 500.0 E9/L [facility] RBC (Bld) [#/Vol] 5.6 E12/L Normal 4.3 - 5.9 E12/L [facility] WBC corrected for nucl RBC Auto (Bld) [#/Vol] 8.5 E9/L Normal 4.0 - 11.0 E9/L [facility] PT & PTTon 09-23-2024 aPTT Coag (PPP) [Time] 31.2 second(s) Normal 25.1-36.5 [facility] Comment on above: Result Comment: Para meter 15 days - 4 weeks 1 - 5 months 6 - 11 months 1 - 5 years 6 - 10 years 11 - 17 years PTT Mean: 35.4 (27.6-45.6) Mean: 33.5 (24.8-40.7) Mean: 32.4 (25.1-40.7) Mean: 31.6 (24.0-39.2) Mean: 31.6 (26.9-38.7) Mean: 31.0 (24.6-38.4) Pediatric Reference ranges were obtained from a study by Dileep Yoder et al. prepared from 1437 samples obtained at 7 different centers using the same coagulation reagent and instrumentation as [facility]. Currently there are no coagulation studies available worldwide for children to 14 days, and no normal ranges. Heparin therapeutic range (represented by Anti-Factor Xa activity of 0.2 - 0.4 U/mL) corresponds to PTT of 56.6 - 109.0 sec. Performed By: #### 1 [id number] #### [facility] [address] [place] [address] INR Coag (PPP) [Relative time] 1.01 {INR} Invalid Interpretation Code [facility] Comment on above: Result Comment: INR results are specifically intended to assess patients stabilized on long-term Anticoagulation therapy suggested INR???s ???Less Intensive Anticoagulation??? 2.0 ??? 3.0 Conventional Range 3.0 ??? 4.5 Performed By: #### 1 [id number] #### [facility] [address] [place] [address] PT Coag (PPP) [Time] 11.3 second(s) Normal 9.4-12.5 [facility] Comment on above: Result Comment: 15 d ays - 4 weeks 1 - 5 months 6 -11 months 1- 5 years 6-10 years 11 -17 years Mean: 11.2 (9.5-12.6) Mean: 11.0 (9.7-12.8) Mean: 11.0 (9.8-13.0) Mean: 11.3 (9.9-13.4) Mean: 11.7 (10.0-14.6) Mean: 11.8 (10.0 - 14.1) Pediatric Reference ranges were obtained from a study by Dileep Yoder et al. prepared from 1437 samples obtained at 7 different centers using the same coagulation reagent and instrumentation as [facility]. Currently there are no coagulation studies available worldwide for children to 14 days, and no normal ranges. Performed By: #### 1 [id number] #### [facility] [address] [place] [id number] Troponin 0 Hr.on 09-23-2024 Troponin HS 3.40 pg/mL Low 15.90-38.40 [facility] Comment on above: Result Comment: The 95% CI (Confidence Interval) PPV (Positive Predictive Value) for myocardial infarction in females is 38 pg/mL, in males 51 pg/mL. The results should be used in conjunction with clinical conditions of myocardial infarction. (Access High Sensitivity Troponin I Instructions For Use, [employer], January 2018) Performed By: #### 1 [id number] #### [facility] [address] [place] [address] Troponin 1 Hr.on 09-23-2024 Troponin HS 3.50 pg/mL Low 15.90-38.40 [facility] Comment on above: Order Comment: 1736 Result Comment: The 95% CI (Confidence Interval) PPV (Positive Predictive Value) for myocardial infarction in females is 38 pg/mL, in males 51 pg/mL. The results should be used in conjunction with clinical conditions of myocardial infarction. (Access High Sensitivity Troponin I Instructions For Use, [employer], January 2018) Performed By: #### 1 [id number] #### [facility] [address] [place] [address] eGFRon 09-23-2024 eGFR 121 mL/min/1.73 m2 Normal >=59 [facility] Comment on above: Performed By: #### 1 [id number] #### [facility] [address] [place] [address] Ambulatory Visit Summaryon 0 08-05-2024 Ambulatory Visit Summary Ambulatory Visit Summary CRISPIN MORATAYA :1990 Visit Date:08/05/2024 Ambulatory Visit Instructions Your Diagnosis Vasectomy evaluation Your Care Team Attending Physician - SALLY LOYA, Clemente Kay Primary Care Physician - ALLYN HER MD This Is Your Medications List cephalexin (Keflex 500 mg Cap) Procedures Performed Hand, Meniscus, Tonsillectomy and adenoidectomy. Discharge Vitals Heart Rate (Peripheral) 88 Respiratory Rate 18 Blood Pressure 115/76 Height 180 cm Height 71 in Weight 125.0 kg Weight 275.578 lb BMI 38.58 What to do next Scheduled Follow-Up Appointments Monday 12:30 PM EDT With: Clemente RODRIGUEZ MD Where: [facility] [address] [place] [address]- You Need to Schedule the Following Appointments Follow Up with Clemente RODRIGUEZ MD, URL When: Comments: sched vas Where: [facility] [address], [place] [address]- [phone] Medications What How Much When Instructions New cephalexin (Keflex 500 mg Cap) 1 Capsules By Mouth 2 times a day Duration: 5 Days start with first meal after procedure Pickup at [id number] Pharmacy Information [facility]pharmacy #[id number]: [address] [place] [place] [id number] [phone] Allergies mometasone nasal (Irritation) Patient Survey You may receive a survey via text or e-mail asking about your office visit. Please share your experience with us by completing your survey. We appreciate your feedback and thank you for choosing us for your care. Education Materials Vasectomy, Care After This sheet gives you information about how to care for yourself after your procedure. Your health care provider may also give you more specific instructions. If you have problems or questions, contact your health care provider. What can I expect after the procedure? After the procedure, it is common to have: ??? Mild pain, swelling, or discomfort in your scrotum or redness on your scrotum. ??? Some blood coming from your incisions or puncture sites for 1 or 2 days. ??? Blood in your semen. Follow these instructions at home: Medicines ??? Take [id number] and prescription medicines only as told by your health care provider. ??? Avoid taking any medicines that contain aspirin or NSAIDs, such as ibuprofen. These medicines can make bleeding worse. Activity ??? For the first 2 days after surgery, avoid physical activity and exercise that requires a lot of energy. Ask your health care provider what activities are safe for you. ??? Do not take part in sports or perform heavy physical labor until your pain has improved, or until your health care provider says it is okay. ??? You may have limits on the amount of weight you can lift as told by your health care provider. ??? Do not ejaculate for at least 1 week after the procedure, or for as long as you are told. ??? You may resume sexual activity 7???10 days after your procedure, or when your health care provider approves. Use a different method of control (contraception) until you have had test results that confirm that there is no sperm in your semen. Scrotal support ??? Use scrotal support, such as a jockstrap or underwear with a supportive pouch, as needed for 1 week after your procedure. ??? If you feel discomfort in your scrotum, you may remove the scrotal support to see if the discomfort is relieved. Sometimes scrotal support can press on the scrotum and cause or worsen discomfort. ??? If your skin gets irritated, you may add some germ-free (sterile), fluffed bandages or a clean washcloth to the scrotal support. Managing pain and swelling If directed, put ice on the affected area. To do this: ??? Put ice in a plastic bag. ??? Place a towel between your skin and the bag. ??? Leave the ice on for 20 minutes, 2???3 times a day. ??? Remove the ice if your skin turns bright red. This is very important. If you cannot feel pain, heat, or cold, you have a greater risk of damage to the area. General instructions ??? Check your incisions or puncture sites every day for signs of infection. Check for: ? Redness, swelling, or more pain. ? Fluid or blood. ? Warmth. ? Pus or a bad smell. ??? Leave stitches (sutures) in place. The sutures will dissolve on their own and do not need to be removed. ??? Keep all follow-up visits. This is important because you will need a test to confirm that there is no sperm in your semen. Multiple ejaculations are needed to clear out sperm that were beyond the vasectomy site. You will need one test result showing that there is no sperm in your semen before you can resume unprotected sex. This may take 2???4 months after your procedure. ??? If you were given a sedative during the procedure, it can affect yo (more content not included)... Normal [facility] Urology Office/Clinic Noteon 08-05-2024 Urology Office/Clinic Note Urology Office/Clinic Note Chief Complaint vasectomy consult HPI Staff 33yr old male pt here for vasectomy consult. Pt has 5 children. Pt states sometimes after ejaculation he has burning/tingling sensation that will not go away. Denies any other concerns. History of Present Illness Tests reviewed: reviewed UA I have reviewed the previous health record information and history for this patient from external providers. I have reviewed and verified the staff HPI to be accurate for this encounter. Review of Systems PHQ Score Initial Depression Screen Score: 0 SCORE ROS - Provider Constitutional: denies weight loss, denies hot flashes. Eyes: denies eye problems. Gastrointestinal: denies nausea, denies vomiting. Cardiovascular: denies chest pain or angina. Integumentary: no dryness Musculoskeletal: denies musculoskeletal symptoms. ENMT: denies otolaryngeal symptoms. Respiratory: no shortness of breath. Heme/Lymph: denies easy bleeding tendency, denies easy bruising tendency. Psychiatric: no confusion, no anxiety. Genitourinary: See HPI. Physical Exam Vitals & Measurements HR: 88(Peripheral) RR: 18 BP: 115/76 HT: 71 in HT: 180 cm WT: 125.0 kg WT: 275.578 lb BMI: 38.58 General Appearance: alert, no distress, well nourished, well developed male. Head: normocephalic . Eyes: normal orbit and globe. ENMT: normal examination of external ears. Chest: Lungs CTA, respirations non labored. Cardiovascular: regular rate and rhythm. Abdomen: soft, non distended, no tenderness, no mass or organomegaly, no hernia. Genitourinary: normal scrotum, abnormalR is small c/w L. no mass. testes, normal urethra, normal epididymis, normal vas deferens/spermatic cord. Flank Pain: none. Bladder: nonpalpable. Penis: normal shaft, normal glans. Lymph Nodes: unremarkable palpation of the cervical area. Skin: warm, dry, no bruising. Psychiatric: cooperative, affect appropriate for age, normal judgement, euthymic mood. Assessment/Plan Crispin is a 33 yo male new pt here for vasectomy consult. IPSS 1. IDA 25. 1. Vasectomy evaluation (Z30.09: Encounter for other general counseling and advice on contraception) Pt has 5 children and desires sterilization. UA today negative for blood and infection. -Will schedule Vasectomy. The procedural risks, benefits, details, and treatment alternatives of sterilization have been discussed with the patient today. He understands this procedure is considered permanent, even though vasectomy reversals can be performed. There is no guarantee of successful reversal resulting in , however. Risks discussed include bleeding, infection, failure with in about 1:2500, post-vasectomy syndrome (chronic pain in the testicle or scrotum), possible association with prostate cancer development in the future, and erection problems, among others. Despite these risks, he wishes to proceed. He also understands that he is not considered sterile until a negative semen sample has been received after about 2-3 months after the vasectomy. Full informed consent has been obtained. Will order General anesthesia. -Abstinence and no masturbation for 1 week after procedure -Shave site the night prior Follow-up With When Contact Information SALLY LOYA, Clemente Kay, URL [facility] [address] [place] [address] [phone] Additional Instructions: sched vas Patient Education Vasectomy, Care After Vasectomy ISofiya, personally scribed for Dr. Rodriguez on 08/05/2024 13:36:30. . Documentation recorded by the Sofiya kessler, accurately reflects the services(s) I performed and decisions made by me. Authenticated by Dr. Rodriguez on 08/05/2024 13:38:31. Problem List/Past Medical History Ongoing No qualifying data Historical No qualifying data Procedure/Surgical History Hand, Meniscus, Tonsillectomy and adenoidectomy. Medications No active medications Allergies mometasone nasal (Irritation) Social History Alcohol Never., 07/07/2024 Substance Abuse Never., 07/07/2024 Tobacco Never (less than 100 in lifetime) Tobacco Use:., 07/07/2024 Family History Arthritis: Grandparent. Diabetes mellitus type 2: Mother. Heart disease: Grandparent. Hypertension: Grandparent. IBS - Irritable bowel syndrome: Mother. Kidney stone: Grandparent. Lung cancer: Grandparent. Migraine: Mother. Immunizations Vaccine Date Status measles/mumps/rubella virus vaccine 01/26/2005 Recorded poliovirus vaccine, inactivated 12/29/1993 Recorded measles/mumps/rubella virus vaccine 12/29/1993 Recorded DTaP, unspecified formulation 12/29/1993 Recorded DTaP, unspecified formulation 03/12/1993 Recorded poliovirus vaccine, inactivated 01/11/1993 Recorded DTaP, unspecified formulation 01/11/1993 Recorded poliovirus vaccine, inactivated 1992 Recorded DTaP, unspecified formulation 1992 Recorded Lab Resu (more content not included)... Normal [facility] Comment on above: Result Comment: Elec tronically Signed By: Clemente RODRIGUEZ MD\.br\Date and Time Signed: 08/05/24 13:38 EST\.br\Electronically Co-Signed By: Sofiya Oseguerabr\Date and Time Co-Signed: 08/05/24 13:37 EST Vital Signs Date Time Vital Sign Value Performing Clinician Facility 09-23-2024 16:09-0400 Body temperature 97.88 [degF] Neil Hutchison [facility] 09-23-2024 16:09-0400 Diastolic blood pressure 93 mm[Hg] Neil Hutchison [facility] 09-23-2024 16:09-0400 Heart rate 102 /min Neil Hutchison [facility] 09-23-2024 16:09-0400 Respiratory rate 20 /min Neil Hutchison [facility] 09-23-2024 16:09-0400 SaO2% (BldA) [Mass fraction] 98 % Neil Hutchison [facility] 09-23-2024 16:09-0400 Systolic blood pressure 155 mm[Hg] Neil Hutchison [facility] 08-05-2024 12:45-0500 Blood Pressure Location Clemente RODRIGUEZ [facility] 08-05-2024 12:45-0500 Diastolic blood pressure 76 mm[Hg] Clemente RODRIGUEZ [facility] 08-05-2024 12:45-0500 Heart rate 88 /min Clemente RODRIGUEZ [facility] 08-05-2024 12:45-0500 Respiratory rate 18 /min Clemente RODRIGUEZ [facility] 08-05-2024 12:45-0500 Systolic blood pressure 115 mm[Hg] Clemente RODRIGUEZ [facility] 02-27-2024 08:33-0400 Body height 177.8 cm Pablito Bass NP Work Phone: [facility] 02-27-2024 08:33-0400 Body mass index (BMI) [Ratio] 38.02 kg/m2 Pablito Bass [employer] Work Phone: [facility] 02-27-2024 08:33-0400 Body weight 120.2 kg Pablito Bass [employer] Work Phone: [facility] 02-27-2024 08:33-0400 Diastolic blood pressure 70 mm[Hg] Pablito Bass [employer] Work Phone: [facility] 02-27-2024 08:33-0400 Heart rate 75 /min Pablito Bass [employer] Work Phone: [facility] 02-27-2024 08:33-0400 SaO2% (BldA) [Mass fraction] 97 % Pablito Bass [employer] Work Phone: [facility] 02-27-2024 08:33-0400 Systolic blood pressure 124 mm[Hg] Pablito Bass [employer] Work Phone: [facility] 11-13-2021 02:07-0400 Body temperature 98.24 [degF] Neil Hutchison [facility] 11-13-2021 02:07-0400 Diastolic blood pressure 75 mm[Hg] Neil Hutchison [facility] 11-13-2021 02:07-0400 Heart rate 69 /min Neil Hutchison [facility] 11-13-2021 02:07-0400 Respiratory rate 16 /min Neil Hutchison [facility] 11-13-2021 02:07-0400 SaO2% (BldA) [Mass fraction] 99 % Neil Hutchison [facility] 11-13-2021 02:07-0400 Systolic blood pressure 144 mm[Hg] Neli Hutchison [facility] Encounters Encounter Date Encounter Type Care Provider Facility Start: 12-04-2024 End: 12-04-2024 Emergency department patient visit Neil Hutchison [facility] Start: 11-04-2024 ambulatory Clemente Cummings ty:ANGELIA Mccarthy Start: 10-18-2024 ambulatory Clemente RODRIGUEZ Facili ty:[id number] Start: 09-23-2024 End: 09-23-2024 Emergency department patient visit Neil Hutchison [facility] Start: 08-05-2024 End: 08-05-2024 ambulatory Clementekwadwo RODRIGUEZ Facility:[facility] Start: 08-05-2024 End: 08-05-2024 Patient encounter procedure Clemente RODRIGUEZ [facility] Start: 07-08-2024 End: 07-08-2024 ambulatory Clemente RODRIGUEZ Facility:[facility] Start: 07-08-2024 End: 07-08-2024 Patient encounter procedure Clemente RODRIGUEZ [facility] Start: 02-27-2024 End: 02-27-2024 Bamboo flowsheet Pablito Bass [employer] Work Phone: [facility] Start: 02-27-2024 End: 02-27-2024 Bamboo flowsheet Pablito Bass [employer] Work Phone: [facility] Start: 02-27-2024 ambulatory Clemente RODRIGUEZ Facility :[facility] Start: 02-27-2024 End: 02-27-2024 ambulatory PABLITO BASS Not Available Start: 02-27-2024 End: 02-27-2024 Office outpatient visit 25 minutes Pablito Bass [employer] Work Phone: [facility] Comment on above: Acute seasonal aller gic rhinitis due to pollen (Primary Dx); Vasectomy evaluation; Morbid (severe) obesity due to excess calories ([facility]) Start: 11-13-2021 End: 11-13-2021 Emergency department patient visit Neil Hutchison [facility] Procedures Date Procedure Procedure Detail Performing Clinician Genus Meniscus (organism) Alexander Hutchison Hand structure (body structure) Neil Hutchison Tonsillectomy and adenoidectomy Neil Hutchison Plan of Treatment Date Care Activity Detail Author Start: 02-03-2025 Influenza vaccination Influenza Vacc ine (#1) [facility] Comment on above: Postponed from 02/03 (Other Medical Reasons) Immunizations Immunization Date Immunization Notes Care Provider [facility] 01-26-2005 measles, mumps and rubella virus vaccine Pablito Bass [employer] Work Phone: [facility] 12-29-1993 diphtheria, tetanus toxoids and acellular pertussis vaccine, unspecified formulation Pablito Bass [employer] Work Phone: [facility] 12-29-1993 DTaP, unspecified formulation Clemente RODRIGUEZ [facility] 12-29-1993 haemophilus influenz ae type b conjugate and Hepatitis B vaccine Pablito Bass [employer] Work Phone: [facility] 12-29-1993 measles, mumps and rubella virus vaccine Pablito Bass [employer] Work Phone: [facility] 12-29-1993 poliovirus vaccine, inactivated Pablito Bass [employer] Work Phone: [facility] 12-29-1993 poliovirus vaccine, unspecified formulation Clemente RODRIGUEZ [facility] 03-12-1993 diphtheria, tetanus toxoids and acellular pertussis vaccine, unspecified formulation Pablito Bass [employer] Work Phone: [facility] 03-12-1993 DTaP, unspecified formulation Clemente RODRIGUEZ [facility] 03-12-1993 haemophilus influenz ae type b conjugate and Hepatitis B vaccine Pablito Bass [employer] Work Phone: [facility] 01-11-1993 diphtheria, tetanus toxoids and acellular pertussis vaccine, unspecified formulation Pablitoheidi Bass [employer] Work Phone: [facility] 01-11-1993 DTaP, unspecified formulation Clementekwadwo RODRIGUEZ [facility] 01-11-1993 haemophilus influenz ae type b conjugate and Hepatitis B vaccine Pablito Kali [employer] Work Phone: [facility] 01-11-1993 poliovirus vaccine, inactivated Pablito Frankvely [employer] Work Phone: [facility] 01-11-1993 poliovirus vaccine, unspecified formulation Clementekwadwo RODRIGUEZ [facility] 1992 diphtheria, tetanus toxoids and acellular pertussis vaccine, unspecified formulation Pablito Bartlett [employer] Work Phone: [facility] 1992 DTaP, unspecified formulation Clementekwadwo RODRIGUEZ [facility] 1992 haemophilus influenz ae type b conjugate and Hepatitis B vaccine Pablito Kali [employer] Work Phone: [facility] 1992 poliovirus vaccine, inactivated Pablito Bass [employer] Work Phone: [facility] 1992 poliovirus vaccine, unspecified formulation Clementekwadwo RODRIGUEZ [facility] Payers Date Payer Category Payer Medicaid [id number] 2024 Private Health Insurance [id number] 2024 Unknown [id number] 2024 Unknown [id number] 2023 Unknown [id number] 2023 Unknown [id number] 2021 Unknown [id number] 1992 Unknown [id number] 2.16.84 [id number] 1992 Unknown [id number] 2.16.8 [id number] 1992 Unknown [id number] 2.16.8 [id number] 1992 Unknown [id number] 2.16.8 [id number] 1992 Unknown [id number] 2.16.8 [id number] 1992 Unknown [id number] 2.16.8 [id number] 1992 Unknown [id number] 2.16.8 [id number] 1992 Unknown [id number] 2.16.8 [id number] 1992 Unknown [id number] 2.16.8 [id number] 1992 Unknown [id number] 2.16.8 [id number] 1992 Unknown [id number] 2.16.8 [id number] Social History Date Type Detail Facility Start: 04-07-2021 End: 07-07-2024 Tobacco smoking status Never smoked tobacco (finding) [facility] Tobacco smoking status Never [facility] Start: 02-19-2024 End: 02-27-2024 Sex Assigned At Male [facility] Start: 02-19-2024 Tobacco use and exposure Smokeless tobacco non-user [facility] Start: 02-19-2024 End: 02-27-2024 History of Social function [facility] Do you belong to any clubs or organizations such as yazdanism groups, unions, fraternal or athletic groups, or school groups? No [facility] Are you now , , , , never or living with a partner? [facility] How often to you hav e a drink containing alcohol? Never [facility] How hard is it for y ou to pay for the very basics like food, housing, medical care, and heating Very hard [facility] Do you feel stress - tense, restless, nervous, or anxious, or unable to sleep at night because your mind is troubled all the time - these days [OSQ] Only a little [facility] (I/We) worried whejadon er (my/our) food would run out before (I/we) got money to buy more. Sometimes true [facility] The food that (I/we) bought just didn't last, and (I/we) didn't have money to get more. Often true [facility] In the past 12 month s, was there a time when you were not able to pay the mortgage or rent on time? Yes [facility] Start: 1992 Sex assigned at Male [facility] Start: 02-27-2024 Gender identity Identifies as male gender (finding) [facility] Start: 02-27-2024 Sexual orientation Heterosexual (finding) [facility] Sexual Orientation [facility] Start: 09-16-2009 Sex Male (finding) [facility] Functional Status Date Assessment Result Facility 09-23-2024 Functional Status N/A [facility] 08-05-2024 Functional Status N/A [facility] 11-13-2021 Functional Status N/A [facility] Clinical Notes 11-13-2021 to 12-04-2024 Note Date & Type Note Facility 12-04-2024 Hospital Discharg e instructions Patient Education 12/04/2024 17:54:23 Cellulitis, Adult Cellulitis, Adult Cellulitis is a skin infection. The infected area is usually warm, red, swollen, and tender. It most commonly occurs on the lower body, such as the legs, feet, and toes, but this condition can occur on any part of the body. The infection can travel to the muscles, blood, and underlying tissue and become life-threatening without treatment. It is important to get medical treatment right away for this condition. What are the causes? Cellulitis is caused by bacteria. The bacteria enter through a break in the skin, such as a cut, burn, insect or animal bite, open sore, or crack. What increases the risk? This condition is more likely to occur in people who: Have a weak body's defense system (immune system). Are older than 60 years old. Have diabetes. Have a type of long-term (chronic) liver disease (cirrhosis) or kidney disease. Are obese. Have a skin condition such as: ?An itchy rash, such as eczema or psoriasis. ?A fungal rash on the feet or in skinfolds. ?Blistering rashes, such as shingles or chickenpox. ?Slow movement of blood in the veins (venous stasis). ?Fluid buildup below the skin (edema). Have open wounds on the skin, such as cuts, puncture wounds, [place], bites, scrapes, tattoos, piercings, or wounds from surgery. Have had radiation therapy. Use IV drugs. What are the signs or symptoms? Symptoms of this condition include: Skin that looks red, purple, or slightly darker than your usual skin color. Streaks or spots on the skin. Swollen area of the skin. Tenderness or pain when an area of the skin is touched. Warm skin. Fever or chills. Blisters. Tiredness (fatigue). How is this diagnosed? This condition is diagnosed based on a medical history and physical exam. You may also have tests, including: Blood tests. Imaging tests. Tests on a sample of fluid taken from the wound (wound culture). How is this treated? Treatment for this condition may include: Medicines. These may include antibiotics or medicines to treat allergies (antihistamines). Rest. Applying cold or warm wet cloths (compresses) to the skin. If the condition is severe, you may need to stay in the hospital and get antibiotics through an IV. The infection usually starts to get better within 1 2 days of treatment. Follow these instructions at home: Medicines Take ktyx-vfc-fnswkkk and prescription medicines only as told by your health care provider. If you were prescribed antibiotics, take them as told by your provider. Do not stop using the antibiotic even if you start to feel better. General instructions Drink enough fluid to keep your pee (urine) pale yellow. Do not touch or rub the infected area. Raise (elevate) the infected area above the level of your heart while you are sitting or lying down. Return to your normal activities as told by your provider. Ask your provider what activities are safe for you. Apply warm or cold compresses to the affected area as told by your provider. Keep all follow-up visits. Your provider will need to make sure that a more serious infection is not developing. Contact a health care provider if: You have a fever. Your symptoms do not improve within 1 2 days of starting treatment or you develop new symptoms. Your bone or joint underneath the infected area becomes painful after the skin has healed. Your infection returns in the same area or another area. Signs of this may include: ?You notice a swollen bump in the infected area. ?Your red area gets larger, turns dark in color, or becomes more painful. ?Drainage increases. ?Pus or a bad smell develops in your infected area. ?You have more pain. You feel ill and have muscle aches and weakness. You develop vomiting or diarrhea that will not go away. Get help right away if: You notice red streaks coming from the infected area. You notice the skin turns purple or black and falls off. This symptom may be an emergency. Get help right away. Call 911. Do not wait to see if the symptom will go away. Do not drive yourself to the hospital. This information is not intended to replace advice given to you by your health care provider. Make sure you discuss any questions you have with your health care provider. Document Revised: 01/17/2023 Document Reviewed: 01/17/2023 [employer] Patient Education 2023 [employer] ([employer]). Follow Up Care 12/04/2024 16:52:12 With:ALLYN HER Address: [address] [place] [id number] Business (1) When:12/07/2024 17:53:21 Comments:Call the office of your primary care doctor to arrange for follow-up within the above-stated timeframe. Follow-up with your primary care doctor about this ED visit. You should review your labs, imaging, and diagnoses from this ED visit with your primary care physician. There are occasionally non-emergent findings that require additional follow-up after your ED visit. If you were prescribed medications you should discuss possible side-effects and drug interactions with your pharmacist. Call 911 or go to the nearest Emergency Department if you develop any new or worsening symptoms. [facility] 12-04-2024 Note ED Patient Education Note Infectious Disease Cellulitis, Adult Cellulitis is a skin infection. The infected area is usually warm, red, swollen, and tender. It most commonly occurs on the lower body, such as the legs, feet, and toes, but this condition can occur on any part of the body. The infection can travel to the muscles, blood, and underlying tissue and become life-threatening without treatment. It is important to get medical treatment right away for this condition. What are the causes? Cellulitis is caused by bacteria. The bacteria enter through a break in the skin, such as a cut, burn, insect or animal bite, open sore, or crack. What increases the risk? This condition is more likely to occur in people who: ??? Have a weak body's defense system (immune system). ??? Are older than 60 years old. ??? Have diabetes. ??? Have a type of long-term (chronic) liver disease (cirrhosis) or kidney disease. ??? Are obese. ??? Have a skin condition such as: ? An itchy rash, such as eczema or psoriasis. ? A fungal rash on the feet or in skinfolds. ? Blistering rashes, such as shingles or chickenpox. ? Slow movement of blood in the veins (venous stasis). ? Fluid buildup below the skin (edema). ??? Have open wounds on the skin, such as cuts, puncture wounds, [place], bites, scrapes, tattoos, piercings, or wounds from surgery. ??? Have had radiation therapy. ??? Use IV drugs. What are the signs or symptoms? Symptoms of this condition include: ??? Skin that looks red, purple, or slightly darker than your usual skin color. ??? Streaks or spots on the skin. ??? Swollen area of the skin. ??? Tenderness or pain when an area of the skin is touched. ??? Warm skin. ??? Fever or chills. ??? Blisters. ??? Tiredness (fatigue). How is this diagnosed? This condition is diagnosed based on a medical history and physical exam. You may also have tests, including: ??? Blood tests. ??? Imaging tests. ??? Tests on a sample of fluid taken from the wound (wound culture). How is this treated? Treatment for this condition may include: ??? Medicines. These may include antibiotics or medicines to treat allergies (antihistamines). ??? Rest. ??? Applying cold or warm wet cloths (compresses) to the skin. ??? If the condition is severe, you may need to stay in the hospital and get antibiotics through an IV. The infection usually starts to get better within 1?2 days of treatment. Follow these instructions at home: Medicines ??? Take zvez-yih-kvuvboj and prescription medicines only as told by your health care provider. ??? If you were prescribed antibiotics, take them as told by your provider. Do not stop using the antibiotic even if you start to feel better. General instructions ??? Drink enough fluid to keep your pee (urine) pale yellow. ??? Do not touch or rub the infected area. ??? Raise (elevate) the infected area above the level of your heart while you are sitting or lying down. ??? Return to your normal activities as told by your provider. Ask your provider what activities are safe for you. ??? Apply warm or cold compresses to the affected area as told by your provider. ??? Keep all follow-up visits. Your provider will need to make sure that a more serious infection is not developing. Contact a health care provider if: ??? You have a fever. ??? Your symptoms do not improve within 1?2 days of starting treatment or you develop new symptoms. ??? Your bone or joint underneath the infected area becomes painful after the skin has healed. ??? Your infection returns in the same area or another area. Signs of this may include: ? You notice a swollen bump in the infected area. ? Your red area gets larger, turns dark in color, or becomes more painful. ? Drainage increases. ? Pus or a bad smell develops in your infected area. ? You have more pain. ??? You feel ill and have muscle aches and weakness. ??? You develop vomiting or diarrhea that will not go away. Get help right away if: ??? You notice red streaks coming from the infected area. ??? You notice the skin turns purple or black and falls off. This symptom may be an emergency. Get help right away. Call 911. ??? Do not wait to see if the symptom will go away. ??? Do not drive yourself to the hospital. This information is not intended to replace advice given to you by your health care provider. Make sure you discuss any questions you have with your health care provider. Document Revised: 01/17/2023 Document Reviewed: 01/17/2023 [facility] Patient Education ? 2023 [employer] (TTN). [facility] 12-04-2024 Evaluation + Plan note Extrac divine from: Title:ED Note Author:Neil Hutchison DO Date: Cellulitis (L03.90: Cellulit is, unspecified) Orders: cephalexin, 500 mg = 1 cap(s), Oral, QID, X 7 day(s), # 28 cap(s), Refills(s) 0, Pharmacy: [facility]/pharmacy #[id number], 180.3, cm, 12/04/24 16:57:00 EDT, Height/Length Dosing, 125, kg, 12/04/24 16:57:00 EDT, Weight Dosing doxycycline, 100 mg = 1 tab(s), Oral, q12hr, X 7 day(s), # 14 tab(s), Refills(s) 0, Pharmacy: [facility]/pharmacy #[id number], 180.3, cm, 12/04/24 16:57:00 EDT, Height/Length Dosing, 125, kg, 12/04/24 16:57:00 EDT, Weight Dosing [facility] 04-21-2025 Hospital Discharge instructions Patient Education 09/23/2024 19:33:02 Managing Anxiety, Adult Managing Anxiety, Adult After being diagnosed with anxiety, you may be relieved to know why you have felt or behaved a certain way. You may also feel overwhelmed about the treatment ahead and what it will mean for your life. With care and support, you can manage your anxiety. How to manage lifestyle changes Understanding the difference between stress and anxiety Although stress can play a role in anxiety, it is not the same as anxiety. Stress is your body's reaction to life changes and events, both good and bad. Stress is often caused by something external, such as a deadline, test, or competition. It normally goes away after the event has ended and will last just a few hours. But, stress can be ongoing and can lead to more than just stress. Anxiety is caused by something internal, such as imagining a terrible outcome or worrying that something will go wrong that will greatly upset you. Anxiety often does not go away even after the eventis over, and it can become a long- term (chronic) worry. Lowering stress and anxiety Talk with your health care provider or a counselor to learn more about lowering anxiety and stress.They may suggest tension-reduction techniques, such as: Music. Spend time creating or listening to music that you enjoy and that inspires you. Mindfulness-based meditation. Practice being aware of your normal breaths while not trying to control your breathing. It can be done while sitting or walking. Centering prayer. Focus on a word, phrase, or sacred image that means something to you and brings you peace. Deep breathing. Expand your stomach and inhale slowly through your nose. Hold your breath for 3 5 seconds. Then breathe out slowly, letting your stomach muscles relax. Self-talk. Learn to notice and spot thought patterns that lead to anxiety reactions. Change those patterns to thoughts that feel peaceful. Muscle relaxation. Take time to tense muscles and then relax them. Choose a tension-reduction technique that fits your lifestyle and personality. These techniques take time and practice. Set aside 5 15 minutes a day to do them. Specialized therapists can offer counseling and training in these techniques. The training to help with anxiety may be covered by some insurance plans. Other things you can do to manage stress and anxiety include: Keeping a stress diary. This can help you learn what triggers your reaction and then learn ways to manage your response. Thinking about how you react to certain situations. You may not be able to control everything, but you can control your response. Making time for activities that help you relax and not feeling guilty about spending your time in this way. Doing visual imagery. This involves imagining or creating mental pictures to help you relax. Practicing yoga. Through yoga poses, you can lower tension and relax. Medicines Medicines for anxiety include: Antidepressant medicines. These are usually prescribed for long-term daily control. Anti-anxiety medicines. These may be added in severe cases, especially when panic attacks occur. When used together, medicines, psychotherapy, and tension-reduction techniques may be the most effective treatment. Relationships Relationships can play a big part in helping you recover. Spend more time connecting with trusted friends and family members. Think about going to couples counseling if you have a partner, taking family education classes, or going to family therapy. Therapy can help you and others better understandyour anxiety. How to recognize changes in your anxiety Everyone responds differently to treatment for anxiety. Recovery from anxiety happens when symptomslessen and stop interfering with your daily life at home or work. This may mean that you will startto: Have better concentration and focus. Worry will interfere less in your daily thinking. Sleep better. Be less irritable. Have more energy. Have improved memory. Try to recognize when your condition is getting worse. Contact your provider if your symptoms interfere with home or work and you feel like your condition is not improving. Follow these instructions at home: Activity Exercise. Adults should: ?Exercise for at least 150 minutes each week. The exercise should increase your heart rate and makeyou sweat (moderate-intensity exercise). ?Do strengthening exercises at least twice a week. Get the right amount and quality of sleep. Most adults need 7 9 hours of sleep each night. Lifestyle Eat a healthy diet that includes plenty of vegetables, fruits, whole grains, low-fat dairy products, and lean protein. ?Do not eat a lot of foods that are high in fats, added sugars, or salt (sodium). Make choices that simplify your life. Do not use any products that contain nicotine or tobacco. These products include cigarettes, chewing tobacco, and vaping devices, such as e-cigarettes. If you need help quitting, ask your provider. Avoid caffeine, alcohol, and certain vfjm-ezt-gbncjhj cold medicines. These may make you feel worse. Ask your pharmacist which medicines to avoid. General instructions Take fknt-fpt-nbspiut and prescription medicines only as told by your provider. Keep all follow-up visits. This is to make sure you are managing your anxiety well or if you need more support. Where to find support You can get help and support from: Self-help groups. Online and community organizations. A trusted spiritual leader. Couples counseling. Family education classes. Family therapy. Where to find more information You may find that joining a support group helps you deal with your anxiety. The following sources can help you find counselors or support groups near you: Mental Health [place]: mentalhealth[place].net Anxiety and Depression Association of [place] (ADAA): adaa.org National [place] [employer] Mental [employer]ness (COY): coy.org Contact a health care provider if: You have a hard time staying focused or finishing tasks. You spend many hours a day feeling worried about everyday life. You are very tired because you cannot stop worrying. You start to have headaches or often feel tense. You have chronic nausea or diarrhea. Get help right away if: Your heart feels like it is racing. You have shortness of breath. You have thoughts of hurting yourself or others. Get help right away if you feel like you may hurt yourself or others, or have thoughts about takingyour own life. Go to your nearest emergency room or: Call 911. Call the National Suicide Prevention Lifeline at or 963. This is open 24 hours a day. Text the Crisis Text Line at 800171. This information is not intended to replace advice given to you by your health care provider. Make sure you discuss any questions you have with your health care provider. Document Revised: 02/28/2023 Document Reviewed: 09/12/2021 [facility] Patient Education 2023 [employer] (TTN). 09/23/2024 19:33:02 Shortness of Breath, Adult Shortness of Breath, Adult Shortness of breath is when a person has trouble breathing or when a person feels like she or he ishaving trouble breathing in enough air. Shortness of breath could be a sign of a medical problem. Follow these instructions at home: Pollutants Do not use any products that contain nicotine or tobacco. These products include cigarettes, chewing tobacco, and vaping devices, such as e-cigarettes. This also includes cigars and pipes. If you need help quitting, ask your health care provider. Avoid things that can irritate your airways, including: ?Smoke. This includes campfire smoke, forest fire smoke, and secondhand smoke from tobacco products. Do not smoke or allow others to smoke in your home. ?Mold. ?Dust. ?Air pollution. ?Chemical fumes. ?Things that can give you an allergic reaction (allergens) if you have allergies. Common allergens include pollen from grasses or trees and animal dander. Keep your living space clean and free of mold and dust. General instructions Pay attention to any changes in your symptoms. Take qhgp-pyp-hugthxt and prescription medicines only as told by your health care provider. This includes oxygen therapy and inhaled medicines. Rest as needed. Return to your normal activities as told by your health care provider. Ask your health care provider what activities are safe for you. Keep all follow-up visits. This is important. Contact a health care provider if: Your condition does not improve as soon as expected. You have a hard time doing your normal activities, even after you rest. You have new symptoms. You cannot walk up stairs or exercise the way that you normally do. Get help right away if: Your shortness of breath gets worse. You have shortness of breath when you are resting. You feel light-headed or you faint. You have a cough that is not controlled with medicines. You cough up blood. You have pain with breathing. You have pain in your chest, arms, shoulders, or abdomen. You have a fever. These symptoms may be an emergency. Get help right away. Call 911. Do not wait to see if the symptoms will go away. Do not drive yourself to the hospital. Summary Shortness of breath is when a person has trouble breathing enough air. It can be a sign of a medical problem. Avoid things that irritate your lungs, such as smoking, pollution, mold, and dust. Pay attention to changes in your symptoms and contact your health care provider if you have a hard time completing daily activities because of shortness of breath. This information is not intended to replace advice given to you by your health care provider. Make sure you discuss any questions you have with your health care provider. Document Revised: 01/08/2022 Document Reviewed: 01/08/2022 [facility] Patient Education 2023 [employer] News (TTN). 09/23/2024 19:33:02 Palpitations Palpitations Palpitations are feelings that your heartbeat is irregular or is faster than normal. It may feel like your heart is fluttering or skipping a beat. Palpitations may be caused by many things, includingsmoking, caffeine, alcohol, stress, and certain medicines or drugs. Most causes of palpitations arenot serious. However, some palpitations can be a sign of a serious problem. Further tests and a thorough medicalhistory will be done to find the cause of your palpitations. Your provider may order tests such as an ECG, labs, an echocardiogram, or an ambulatory continuous ECG monitor. Follow these instructions at home: Pay attention to any changes in your symptoms. Let your health care provider know about them. Take these actions to help manage your symptoms: Eating and drinking Follow instructions from your health care provider about eating or drinking restrictions. You may need to avoid foods and drinks that may cause palpitations. These may include: Caffeinated coffee, tea, soft drinks, and energy drinks. Chocolate. Alcohol. Diet pills. Lifestyle Take steps to reduce your stress and anxiety. Things that can help you relax include: ?Yoga. ?Mind-body activities, such as deep breathing, meditation, or using words and images to create positive thoughts (guided imagery). ?Physical activity, such as swimming, jogging, or walking. Tell your health care provider if your palpitations increase with activity. If you have chest pain or shortness of breath with activity, do not continue the activity until you are seen by your health care provider. ?Biofeedback. This is a method that helps you learn to use your mind to control things in your body, such as your heartbeat. Get plenty of rest and sleep. Keep a regular bed time. Do not use drugs, including cocaine or ecstasy. Do not use marijuana. Do not use any products that contain nicotine or tobacco. These products include cigarettes, chewing tobacco, and vaping devices, such as e-cigarettes. If you need help quitting, ask your health careprovider. General instructions Take nvdq-mbx-fgxrinb and prescription medicines only as told by your health care provider. Keep all follow-up visits. This is important. These may include visits for further testing if palpitations do not go away or get worse. Contact a health care provider if: You continue to have a fast or irregular heartbeat for a long period of time. You notice that your palpitations occur more often. Get help right away if: You have chest pain or shortness of breath. You have a severe headache. You feel dizzy or you faint. These symptoms may represent a serious problem that is an emergency. Do not wait to see if the symptoms will go away. Get medical help right away. Call your local emergency services (911 in the [place] Do not drive yourself to the hospital. Summary Palpitations are feelings that your heartbeat is irregular or is faster than normal. It may feel like your heart is fluttering or skipping a beat. Palpitations may be caused by many things, including smoking, caffeine, alcohol, stress, certain medicines, and drugs. Further tests and a thorough medical history may be done to find the cause of your palpitations. Get help right away if you faint or have chest pain, shortness of breath, severe headache, or dizziness. This information is not intended to replace advice given to you by your health care provider. Make sure you discuss any questions you have with your health care provider. Document Revised: 10/13/2021 Document Reviewed: 10/13/2021 [facility] Patient Education 2023 Theme [employer] News (TTN). Follow Up Care 09/23/2024 16:08:51 With:Rubén Kramer Address: [address] [place] [address]- [phone] Business (1) When:09/26/2024 19:23:12 With:ALLYN HER Address: [address] [place] [address]- Business (1) When:Within 3 Day(s) [facility] 04-21-2025 NoteED Patient Education Note Emergency Medicine Palpitations Palpitations are feelings that your heartbeat is irregular or is faster than normal. It may feel like your heart is fluttering or skipping a beat. Palpitations may be caused by many things, includingsmoking, caffeine, alcohol, stress, and certain medicines or drugs. Most causes of palpitations arenot serious. However, some palpitations can be a sign of a serious problem. Further tests and a thorough medicalhistory will be done to find the cause of your palpitations. Your provider may order tests such as an ECG, labs, an echocardiogram, or an ambulatory continuous ECG monitor. Follow these instructions at home: Pay attention to any changes in your symptoms. Let your health care provider know about them. Take these actions to help manage your symptoms: Eating and drinking Follow instructions from your health care provider about eating or drinking restrictions. You may need to avoid foods and drinks that may cause palpitations. These may include: ??? Caffeinated coffee, tea, soft drinks, and energy drinks. ??? Chocolate. ??? Alcohol. ??? Diet pills. Lifestyle ??? Take steps to reduce your stress and anxiety. Things that can help you relax include: ? Yoga. ? Mind-body activities, such as deep breathing, meditation, or using words and images to create positive thoughts (guided imagery). ? Physical activity, such as swimming, jogging, or walking. Tell your health care provider if your palpitations increase with activity. If you have chest pain or shortness of breath with activity, donot continue the activity until you are seen by your health care provider. ? Biofeedback. This is a method that helps you learn to use your mind to control things in your body, such as your heartbeat. ??? Get plenty of rest and sleep. Keep a regular bed time. ??? Do not use drugs, including cocaine or ecstasy. Do not use marijuana. ??? Do not use any products that contain nicotine or tobacco. These products include cigarettes, chewing tobacco, and vaping devices, such as e-cigarettes. If you need help quitting, ask your health care provider. General instructions ??? Take rqmf-zye-oepcgfa and prescription medicines only as told by your health care provider. ??? Keep all follow-up visits. This is important. These may include visits for further testing if palpitations do not go away or get worse. Contact a health care provider if: ??? You continue to have a fast or irregular heartbeat for a long period of time. ??? You notice that your palpitations occur more often. Get help right away if: ??? You have chest pain or shortness of breath. ??? You have a severe headache. ??? You feel dizzy or you faint. These symptoms may represent a serious problem that is an emergency. Do not wait to see if the symptoms will go away. Get medical help right away. Call your local emergency services (911 in the [place] Do not drive yourself to the hospital. Summary ??? Palpitations are feelings that your heartbeat is irregular or is faster than normal. It may feel like your heart is fluttering or skipping a beat. ??? Palpitations may be caused by many things, including smoking, caffeine, alcohol, stress, certain medicines, and drugs. ??? Further tests and a thorough medical history may be done to find the cause of your palpitations. ??? Get help right away if you faint or have chest pain, shortness of breath, severe headache, or dizziness. This information is not intended to replace advice given to you by your health care provider. Make sure you discuss any questions you have with your health care provider. Document Revised: 10/13/2021 Document Reviewed: 10/13/2021 [facility] Patient Education ? 2023 [employer] News (TTN). Mental and Behavioral Health Managing Anxiety, Adult After being diagnosed with anxiety, you may be relieved to know why you have felt or behaved a certain way. You may also feel overwhelmed about the treatment ahead and what it will mean for your life. With care and support, you can manage your anxiety. How to manage lifestyle changes Understanding the difference between stress and anxiety Although stress can play a role in anxiety, it is not the same as anxiety. Stress is your body's reaction to life changes and events, both good and bad. Stress is often caused by something external, such as a deadline, test, or competition. It normally goes away after the event has ended and will last just a few hours. But, stress can be ongoing and can lead to more than just stress. Anxiety is caused by something internal, such as imagining a terrible outcome or worrying that something will go wrong that will greatly upset you. Anxiety often does not go away even after the eventis over, and it can become a long- term (chronic) worry. Lowering stress and anxiety Talk with your health care provider (more content not included)...[facility]03-03-2025 Hospital Discharge instructions Patient Education 08/05/2024 13:35:58 Vasectomy, Care After Vasectomy, Care After This sheet gives you information about how to care for yourself after your procedure. Your health care provider may also give you more specific instructions. If you have problems or questions, contact your health care provider. What can I expect after the procedure? After the procedure, it is common to have: Mild pain, swelling, or discomfort in your scrotum or redness on your scrotum. Some blood coming from your incisions or puncture sites for 1 or 2 days. Blood in your semen. Follow these instructions at home: Medicines Take ayeb-rfe-widnlrq and prescription medicines only as told by your health care provider. Avoid taking any medicines that contain aspirin or NSAIDs, such as ibuprofen. These medicines can make bleeding worse. Activity For the first 2 days after surgery, avoid physical activity and exercise that requires a lot of energy. Ask your health care provider what activities are safe for you. Do not take part in sports or perform heavy physical labor until your pain has improved, or until your health care provider says it is okay. You may have limits on the amount of weight you can lift as told by your health care provider. Do not ejaculate for at least 1 week after the procedure, or for as long as you are told. You may resume sexual activity 7 10 days after your procedure, or when your health care provider approves. Use a different method of control (contraception) until you have had test results thatconfirm that there is no sperm in your semen. Scrotal support Use scrotal support, such as a jockstrap or underwear with a supportive pouch, as needed for 1 weekafter your procedure. If you feel discomfort in your scrotum, you may remove the scrotal support to see if the discomfortis relieved. Sometimes scrotal support can press on the scrotum and cause or worsen discomfort. If your skin gets irritated, you may add some germ-free (sterile), fluffed bandages or a clean washcloth to the scrotal support. Managing pain and swelling If directed, put ice on the affected area. To do this: Put ice in a plastic bag. Place a towel between your skin and the bag. Leave the ice on for 20 minutes, 2 3 times a day. Remove the ice if your skin turns bright red. This is very important. If you cannot feel pain, heat, or cold, you have a greater risk of damage to the area. General instructions Check your incisions or puncture sites every day for signs of infection. Check for: ?Redness, swelling, or more pain. ?Fluid or blood. ?Warmth. ?Pus or a bad smell. Leave stitches (sutures) in place. The sutures will dissolve on their own and do not need to be removed. Keep all follow-up visits. This is important because you will need a test to confirm that there is no sperm in your semen. Multiple ejaculations are needed to clear out sperm that were beyond the vasectomy site. You will need one test result showing that there is no sperm in your semen before you can resume unprotected sex. This may take 2 4 months after your procedure. If you were given a sedative during the procedure, it can affect you for several hours. Do not drive or operate machinery until your health care provider says that it is safe. Contact a health care provider if: You have redness, swelling, or more pain around an incision or puncture site, or in your scrotum area. You have bleeding from an incision or puncture site. You have pus or a bad smell coming from an incision or puncture site. You have a fever. An incision or puncture site opens up. Get help right away if: You develop a rash. You have trouble breathing. Summary After your procedure, it is common to have mild pain, swelling, redness, or discomfort in your scrotum. For the first 2 days after surgery, avoid physical activity and exercise that requires a lot of energy. Put ice on the affected area. Leave the ice on for 20 minutes, 2 3 times a day. If you were given a sedative during the procedure, it can affect you for several hours. Do not drive or operate machinery until your health care provider says that it is safe. This information is not intended to replace advice given to you by your health care provider. Make sure you discuss any questions you have with your health care provider. Document Revised: 10/08/2020 Document Reviewed: 10/08/2020 [employer] Patient Education 2023 [employer] (TTN). 08/05/2024 13:29:14 Vasectomy Vasectomy Vasectomy is a procedure in which the vas deferens is cut and then tied or burned (cauterized). Thevas deferens is a tube that carries sperm from the testicle to the part of the body that drains urine from the bladder (urethra). This procedure blocks sperm from going through the vas deferens and penis during ejaculation. This ensures that sperm does not go into the vagina during sex. Vasectomy does not affect sexual desire or performance and does not prevent sexually transmitted infections. Vasectomy is considered a permanent and very effective form of control (contraception). The decision to have a vasectomy should not be made during a stressful time, such as after the loss of a or a divorce. You and your partner should decide on whether to have a vasectomy when you are sure that you do not want children in the future. Tell a health care provider about: Any allergies you have. All medicines you are taking, including vitamins, herbs, eye drops, creams, and pmhk-uon-buvaflx medicines. Any problems you or family members have had with anesthetic medicines. Any blood disorders you have. Any surgeries you have had. Any medical conditions you have. What are the risks? Generally, this is a safe procedure. However, problems may occur, including: Infection. Bleeding and swelling of the scrotum. The scrotum is the sac that contains the testicles, blood vessels, and structures that help deliver sperm and semen. Allergic reactions to medicines. Failure of the procedure to prevent . There is a very small chance that the tied or cauterized ends of the vas deferens may reconnect (recanalization). If this happens, you could still make a woman . Pain in the scrotum that continues after you heal from the procedure. What happens before the procedure? Medicines Ask your health care provider about: ?Changing or stopping your regular medicines. This is especially important if you are taking diabetes medicines or blood thinners. ?Taking medicines such as aspirin and ibuprofen. These medicines can thin your blood. Do not take these medicines unless your health care provider tells you to take them. ?Taking tiuj-ncn-ridwjmm medicines, vitamins, herbs, and supplements. You may be told to take a medicine to help you relax (sedative) a few hours before the procedure. General instructions Do not use any products that contain nicotine or tobacco for at least 4 weeks before the procedure.These products include cigarettes, e-cigarettes, and chewing tobacco. If you need help quitting, ask your health care provider. Plan to have a responsible adult take you home from the hospital or clinic. If you will be going home right after the procedure, plan to have a responsible adult care for you for the time you are told. This is important. Ask your health care provider: ?How your surgery site will be marked. ?What steps will be taken to help prevent infection. These steps may include: ?Removing hair at the surgery site. ?Washing skin with a germ-killing soap. ?Taking antibiotic medicine. What happens during the procedure? You will be given one or more of the following: ?A sedative, unless you were told to take this a few hours before the procedure. ?A medicine to numb the area (local anesthetic). Your health care provider will feel, or palpate, for your vas deferens. To reach the vas deferens, one of two methods may be used: ?A very small incision may be made in your scrotum. ?A punctured opening may be made in your scrotum, without an incision. Your vas deferens will be pulled out of your scrotum and cut. Then, the vas deferens will be closedin one of two ways: ?Tied at the ends. ?Cauterized at the ends to seal them off. The vas deferens will be put back into your scrotum. The incision or puncture opening will be closed with absorbable stitches (sutures). The sutures will eventually dissolve and will not need to be removed after the procedure. The procedure will be repeated on the other side of your scrotum. The procedure may vary among health care providers and hospitals. What happens after the procedure? You will be monitored to make sure that you do not have problems. You will be asked not to ejaculate for at least 1 week after the procedure, or for as long as you are told. You will need to use a different form of contraception for 2 4 months after the procedure, until you have test results confirming that there are no sperm in your semen. You may be given scrotal support to wear, such as a jockstrap or underwear with a supportive pouch. If you were given a sedative during the procedure, it can affect you for several hours. Do not drive or operate machinery until your health care provider says that it is safe. Summary Vasectomy blocks sperm from being released during ejaculation. This procedure is considered a permanent and very effective form of control. Your scrotum will be numbed with medicine (local anesthetic) for the procedure. After the procedure, you will be asked not to ejaculate for at least 1 week, or for as long as you are told. You will also need to use a different form of contraception until your test results confirm that there are no sperm in your semen. This information is not intended to replace advice given to you by your health care provider. Make sure you discuss any questions you have with your health care provider. Document Revised: 10/08/2020 Document Reviewed: 10/08/2020 [employer] Patient Education 2023 [employer] (TTN). Follow Up Care 07/08/2024 09:05:06 With:SALLY LOYA, Clemente Kay, URL Address: [facility] [address], [place] [address]- [phone] When: Unknown Comments:sched vas [facility]25 NotePatient Education Urology Vasectomy, Care After This sheet gives you information about how to care for yourself after your procedure. Your health care provider may also give you more specific instructions. If you have problems or questions, contact your health care provider. What can I expect after the procedure? After the procedure, it is common to have: ??? Mild pain, swelling, or discomfort in your scrotum or redness on your scrotum. ??? Some blood coming from your incisions or puncture sites for 1 or 2 days. ??? Blood in your semen. Follow these instructions at home: Medicines ??? Take wqsb-anq-znsqgla and prescription medicines only as told by your health care provider. ??? Avoid taking any medicines that contain aspirin or NSAIDs, such as ibuprofen. These medicines can make bleeding worse. Activity ??? For the first 2 days after surgery, avoid physical activity and exercise that requires a lot ofenergy. Ask your health care provider what activities are safe for you. ??? Do not take part in sports or perform heavy physical labor until your pain has improved, or until your health care provider says it is okay. ??? You may have limits on the amount of weight you can lift as told by your health care provider. ??? Do not ejaculate for at least 1 week after the procedure, or for as long as you are told. ??? You may resume sexual activity 7?10 days after your procedure, or when your health care provider approves. Use a different method of control (contraception) until you have had test results that confirm that there is no sperm in your semen. Scrotal support ??? Use scrotal support, such as a jockstrap or underwear with a supportive pouch, as needed for 1 week after your procedure. ??? If you feel discomfort in your scrotum, you may remove the scrotal support to see if the discomfort is relieved. Sometimes scrotal support can press on the scrotum and cause or worsen discomfort. ??? If your skin gets irritated, you may add some germ-free (sterile), fluffed bandages or a clean washcloth to the scrotal support. Managing pain and swelling If directed, put ice on the affected area. To do this: ??? Put ice in a plastic bag. ??? Place a towel between your skin and the bag. ??? Leave the ice on for 20 minutes, 2?3 times a day. ??? Remove the ice if your skin turns bright red. This is very important. If you cannot feel pain, heat, or cold, you have a greater risk of damage to the area. General instructions ??? Check your incisions or puncture sites every day for signs of infection. Check for: ? Redness, swelling, or more pain. ? Fluid or blood. ? Warmth. ? Pus or a bad smell. ??? Leave stitches (sutures) in place. The sutures will dissolve on their own and do not need to beremoved. ??? Keep all follow-up visits. This is important because you will need a test to confirm that thereis no sperm in your semen. Multiple ejaculations are needed to clear out sperm that were beyond thevasectomy site. You will need one test result showing that there is no sperm in your semen before you can resume unprotected sex. This may take 2?4 months after your procedure. ??? If you were given a sedative during the procedure, it can affect you for several hours. Do not drive or operate machinery until your health care provider says that it is safe. Contact a health care provider if: ??? You have redness, swelling, or more pain around an incision or puncture site, or in your scrotum area. ??? You have bleeding from an incision or puncture site. ??? You have pus or a bad smell coming from an incision or puncture site. ??? You have a fever. ??? An incision or puncture site opens up. Get help right away if: ??? You develop a rash. ??? You have trouble breathing. Summary ??? After your procedure, it is common to have mild pain, swelling, redness, or discomfort in your scrotum. ??? For the first 2 days after surgery, avoid physical activity and exercise that requires a lot ofenergy. ??? Put ice on the affected area. Leave the ice on for 20 minutes, 2?3 times a day. ??? If you were given a sedative during the procedure, it can affect you for several hours. Do not drive or operate machinery until your health care provider says that it is safe. This information is not intended to replace advice given to you by your health care provider. Make sure you discuss any questions you have with your health care provider. Document Revised: 10/08/2020 Document Reviewed: 10/08/2020 [facility] Patient Education ? 2023 [employer] (TTN). Vasectomy Vasectomy is a procedure in which the vas deferens is cut and then tied or burned (cauterized). Thevas deferens is a tube that carries sperm from the testicle to the part of the body that drains urine from the bladder (urethra). This procedure blocks sperm from going through the vas deferens and penis during ejaculation. This ensu (more content not included)...[facility]01-10-2025 Hospital Discharge instructions Follow Up Care 06/14/2024 08:46:02 With:SALLY LOYA, Clemente Kay, URL Address: [facility] [address] , [place] [address]- [phone] When: Unknown [facility] 09-24-2024 History of Present illness Narrative* Pablito Bass NP - 02/27/2024 8:30 AM EDT Images from the original note were not included. HPI discuss referrral Additional comments: Pt would like to discuss referral to get vasectomy Last edited by Malou Henry LPN on 02/27/2024 8:37 AM. Subjective Patient ID: Crispin Morataya is a 33 y.o. male who presents for discuss referrral (Pt would like to discuss referral to get vasectomy). Pt has 5 children and would like a vasectomy. No current outpatient medications on file prior to visit. No current facility-administered medications on file prior to visit. I have reviewed and reconciled the history and medication list with the patient today. No Known Allergies Social History Tobacco Use Smoking status: Never Smokeless tobacco: Never No family history on file. Past Medical History: Diagnosis Date Allergic Past Surgical History: Procedure Laterality Date HAND SURGERY Left 2015 2nd and 3rd orif KNEE SURGERY 2009 meniscus tear right TONSILLECTOMY Visit Vitals 5' 10 BMI 41.01 kg/m Smoking Status Never BSA 2.53 m Review of Systems Constitutional: Negative. HENT: Negative. Eyes: Negative. Respiratory: Negative. Cardiovascular: Negative. Gastrointestinal: Negative. Genitourinary: Negative. Musculoskeletal: Negative. Skin: Negative. Neurological: Negative. Psychiatric/Behavioral: Negative. Endocrine: Negative. Objective Physical Exam Vitals reviewed. Constitutional: Appearance: Normal appearance. HENT: Head: Normocephalic. Nose: Nose normal. Mouth/Throat: Mouth: Mucous membranes are moist. Pharynx: Oropharynx is clear. Eyes: Conjunctiva/sclera: Conjunctivae normal. Cardiovascular: Rate and Rhythm: Normal rate and regular rhythm. Pulmonary: Effort: Pulmonary effort is normal. Breath sounds: Normal breath sounds. Skin: General: Skin is warm and dry. Neurological: General: No focal deficit present. Mental Status: He is alert and oriented to person, place, and time. Psychiatric: Mood and Affect: Mood normal. Behavior: Behavior normal. Assessment/Plan Diagnoses and all orders for this visit: Vasectomy evaluation - Ambulatory referral to Urology; Future Pt feels that it is too expensive to raise any more kids so he wants a vasectomy. Acute seasonal allergic rhinitis due to pollen Pt is getting over some allergies.If condition worsens, he will call for an appointment. Obesity Discussed goal of BMI < 30. Advised on weight loss options. Encouraged diet and exercise. Discussed with patient appropriate lifestyle modification changes necessary for weight management, heart healthy eating and overall health promotion. Discussed minimizing high carb, high sugar, high sodium,portion control, and processed foods while making healthy choice replacements. Additionally discussed recommendations of 30 minutes of aerobic exercise at least 5 days per week, that includes, walking, and chair exercises. . Instructed importance of drinking adequate water consumption (if not on fluid restriction) with minimal sugar and caffiene. No follow-ups on file. 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 They may occur on or inside the lips, inside the cheeks, on the tongue, or anywhere else inside or near the mouth. They may be called canker sores or cold sores, which are two types of oral ulcers. Many oral ulcers are harmless and go away on their own. In some cases, oral ulcers may require medical care to determine the cause and proper treatment. What are the causes? Common causes of this condition include: Infections caused by viruses, bacteria, or fungi. Emotional stress. Foods or chemicals that irritate the mouth. Injury or physical irritation of the mouth. Medicines. Allergies. Tobacco use. Less common causes include: Skin disease. A type of herpes virus infection (herpes simplex or herpes zoster). Oral cancer. In some cases, the cause may not be known. What increases the risk? You are more likely to develop this condition if: You wear dental braces, dentures, or retainers. You have poor oral hygiene. You have sensitive skin. You have a condition that affects the entire body (systemic condition), such as an immune disorder. What are the signs or symptoms? The main symptom of this condition is having one or more oval-shaped or round ulcers that have red borders. Symptoms may vary depending on the cause. This includes: Location of the ulcers. Ulcers may be found inside the mouth, on the gums, or on the insides of thelips or cheeks. They may also be found on the lips or on skin that is near the mouth, such as the cheeks or chin. Pain. Ulcers can be painful and uncomfortable, or they can be painless. Appearance of the ulcers. They may look like red blisters and be filled with fluid, or they may be white or yellow patches. Frequency of outbreaks. Ulcers may go away permanently after one outbreak, or they may come back (recur) often or rarely. How is this diagnosed? This condition is diagnosed with a physical exam. Your health care provider may ask you questions about your lifestyle and your medical history. You may have tests, including: Blood tests. Removal of a small number of cells from an ulcer to be examined under a microscope (biopsy). How is this treated? Treatment depends on the severity and cause of the condition. Oral ulcers often go away on their own in 1 2 weeks. Treatment may include medicines, such as: Medicines to treat a viral infection (antivirals), a bacterial infection (antibiotics), or a fungalinfection (antifungals). Medicines to help control pain. This may include: ?Tcck-tmc-canbwqd pain medicines. ?Gel, cream, or spray to numb the area (topical anesthetic) if you have severe pain. ?Other medicines to coat or numb your mouth. Follow these instructions at home: Medicines Take or use xoht-aio-sedofps and prescription medicines only as told by your health care provider. If you were prescribed an antibiotic medicine, take it as told by your health care provider. Do notstop taking the antibiotic even if you start to feel better. Do not use products that contain benzocaine (including numbing gels) to treat teething or mouth pain in children who are younger than 2 years. These products may cause a rare but serious blood condition. Eating and drinking Eat a balanced diet. Do not eat: ?Spicy foods. ?Licking, such as oranges. ?Other foods and drinks that you think may cause or irritate your ulcers. Drink enough fluid to keep your urine pale yellow. Avoid drinking alcohol. Lifestyle Practice good oral hygiene: ?Gently brush your teeth with a soft toothbrush two times a day. ?Floss your teeth every day. ?Get regular dental cleanings and checkups. Do not use any products that contain nicotine or tobacco, such as cigarettes and e-cigarettes. If you need help quitting, ask your health care provider. Managing pain If directed, put ice on your face in the affected area to help reduce pain. ?Put ice in a plastic bag. ?Place a towel between your skin and the bag. ?Leave the ice on for 20 minutes, 2 3 times a day. Avoid physical or chemical irritants that may have caused the ulcers or made them worse, such as mouthwashes that contain alcohol (ethanol). If you wear dental braces, dentures, or retainers, work with your health care provider to make sure these devices are fitted correctly. If you were prescribed a prescription mouthwash to help reduce pain in your mouth, use it as told by your health care provider. General instructions Rinse with a salt-water mixture 3 4 times a day or as told by your health care provider. To make a salt-water mixture, completely dissolve 1 tsp (3 6 g) of salt in 1 cup (237 mL) of warm water. Keep all follow-up visits as told by your health care provider. This is important. Contact a health care provider if: You have: ?Pain that gets worse or does not get better with medicine. ?Four or more ulcers at one time. ?A fever. ?New ulcers that look or feel different from other ulcers you have. ?Inflammation in one eye or both eyes. ?Ulcers that do not go away after 10 days. You develop new symptoms in your mouth, such as: ?Bleeding or crusting around your lips or gums. ?Tooth pain. ?Difficulty swallowing. You develop symptoms on your skin or genitals, such as: ?A rash or blisters. ?Burning or itching sensations. Your ulcers begin or get worse after you start a new medicine. Get help right away if you have: Difficulty breathing. Swelling in your face or neck. Excessive bleeding from your mouth. Severe pain. Summary Oral ulcers may occur anywhere inside or near the mouth. They can be caused by many things, such as infections, stress, injury or irritation, or tobacco use. Oral ulcers can be painful or painless. Treatment may include medicines to relieve pain or to treat an infection (if appropriate). Most oral ulcers go away in 1 2 weeks. This information is not intended to replace advice given to you by your health care provider. Make sure you discuss any questions you have with your health care provider. Document Released: 06/29/2005 Document Revised: 10/04/2018 Document Reviewed: 10/04/2018 [employer] Patient Education 2020 [employer] (TTN). Follow Up Care 11/13/2021 02:05:41 With:ALLYN HER Address: [address] [place] [id number] (1) When:11/16/2021 Comments:Call the office of your primary care doctor to arrange for follow-up within the above-stated timeframe. Follow-up with your primary care doctor about this ED visit. You should review your labs, imaging, and diagnoses from this ED visit with your primary care physician. If you were prescribed medications you should discuss possible side-effects and drug interactions with your pharmacist. Call 911 or go to the nearest Emergency Department if you develop any new or worsening symptoms. [facility] note Future Appointments Appointment Date:08/05/2024 12:00:00 PM Scheduled Provider:Clemente RODRIGUEZ MD Location:[facility] Appointment Type:URO New Patient [facility] evaluation + Plan note Future Appointments Appointment Date:11/04/2024 12:30:00 PM Scheduled Provider:Clemente RODRIGUEZ MD Location:[facility] Appointment Type:URO Office Visit [facility] evalldqqxs note* Diagnosis Acute seasonal allergic rhinitis due to pollen- Primary Vasectomy evaluation Other general counseling and advice for contraceptive management Morbid (severe) obesity due to excess calories (CMS/HCC) documented in this encounter [facility] Narrative No data available for this section [facility] note No data available for this section [facility] for referral (narrative)* Consultation (Routine) - Pending Review Specialty Diagnoses / Procedures Referred By Estella baez Referred To Contact Urology Diagnoses Vasectomy evaluation Procedures MS OFFICE/OUTPATIENT NEW HIGH MDM 60 MINUTES Pablito Bass NP [address] [facility] [address] [place] [address] Darvin Moreno MD [address] [place] [address] Referral ID Status Reason Start Date Expiration Date Visits Requested Visits Authorized [id number] Pending Review Specialty Services Required 02/27/2024 08/25/2024 1 1 [facility] Summary Purpose Family History No Family History Records Found No data available for this section No data available for this section No data available for this section No Family History Records FoundNo Family History Records FoundNo Family History Records FoundNo Family History Records FoundNo Family History Records FoundNo Family History Records Found No data available for this section No Family History Records Found Advance Directives No Advanced Directives Records FoundNo Advanced Directives Records FoundNo Advanced Directives Records FoundNo Advanced Directives Records FoundNo Advanced Directives Records FoundNo Advanced Directives Records FoundNo Advanced Directives Records FoundNo Advanced Directives Records Found Additional Source Comments Care Team (unrecognized sect ion and content) Rn Lvn Relationship Specialty Start Date End Date Allyn Her MD [address] [address] PCP - General Family Medicine 10/11/22 Rn Lvn Relationship Specialty Start Date End Date Allyn Her MD [address] [address] PCP - General Family Medicine 10/11/22 (unrecognized sect ion and content) No Status Records FoundNo Status Records FoundNo Status Records FoundNo Status Records FoundNo Status Records FoundNo Status Records FoundNo Status Records FoundNo Status Records Found INFORMATION SOURCE (unrecogn ized section and content) DATE CREATED AUTHOR 02/29/2024 [facility] DATE CREATED AUTHOR AUTHOR'S ORGANIZ ATION 09/24/2024 [place] [facility] DATE CREATED AUTHOR AUTHOR'S ORGANIZ ATION 10/16/2024 [place] [facility] DATE CREATED AUTHOR AUTHOR'S ORGANIZ ATION 12/07/2024 [facility] Reason for Visit (unrecogniz ed section and content) Reason Comments discuss referrral Pt would like to dis cuss referral to get vasectomy FOR RECORDS PERTAINING TO PATIENTS WHO ARE OR HAVE BEEN ENROLLED IN A CHEMICAL DEPENDENCY/SUBSTANCEABUSE PROGRAM, SOME INFORMATION MAY BE OMITTED. This clinical summary was aggregated from multiple sources. Caution should be exercised in using it in the provision of clinical care. This summary normalizes information from multiple sources, and as a consequence, information in this document may materially change the coding, format and clinical context of patient data. In addition, data may be omitted in some cases. CLINICAL DECISIONS SHOULD BE BASED ON THE PRIMARY CLINICAL RECORDS. [facility] [facility]. provides no warranty or guarantee of the accuracy or completeness of information in this document.
--- NOTE | 2025-03-08 22:00 | PC.NURSE ---
right hand 4th and 5th digits bent back last night while trying to catch himself when falling. fingers can move fingers at joints
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
--- NOTE | 2025-03-08 22:24 | ED.GENADUL1 ---
HPI HPI - General Adult General Chief complaint: Extremity Injury, Upper Stated complaint: HURT RIGHT HAND AT [place] YESTERDAY Time Seen by Provider: 03/08/25 22:06 Source: patient Mode of arrival: walk-in History of Present Illness HPI narrative: 34-year-old male presents for pain to his right 4th and 5th fingers. They were hyperflexed about 24 hours ago. It still hurts that he came in. He points mostly at the distal aspect of these 2 fingers. He is right-handed. No other injury was sustained. Related Data Home Medications ?Medication ?Instructions ?Recorded ?Confirmed No Known Home Medications 04/03/23 04/03/23 Allergies Allergy/AdvReac Type Severity Reaction Status Date / Time No Known Drug Allergies Allergy Verified 04/03/23 00:56 Review of Systems ROS Narrative A ten point review of systems is negative except as noted above. PFSH PFSH Social History Little interest or pleasure in doing things: not at all Feeling down, depressed, or hopeless: not at all Exam Narrative Exam Narrative: Nurses note and vital signs reviewed and patient is not hypoxic. General:The patient appears well and in no apparent distress.Patient is resting comfortably on cart. Skin:Warm, dry, no pallor noted.There is no rash noted. Head:Normocephalic, atraumatic Eye: Normal conjunctiva, no drainage Ears, Nose, Mouth, and Throat: oral mucosa is moist. Nares patent. Cardiovascular:Regular Rate and Rhythm Respiratory:Patient is in no distress, no accessory muscle use, lungs are clear to auscultation, no wheezing, rales or rhonchi Back:non-tender GI: Soft and nontender Musculoskeletal: The right hand is examined. All fingers have good range of motion at all the IP joints. There may be some mild swelling distally in the 4th and 5th fingers. Skin intact. Neurological:A&O, normal speech Psychiatric:Cooperative Constitutional Vital Signs, click to edit/add: Last Vital Signs Temp 99.0 F 03/08/25 21:32 Pulse 69 03/08/25 21:32 Resp 18 03/08/25 21:32 BP 124/82 03/08/25 21:32 Pulse Ox 99 03/08/25 21:32 O2 Del Method Room Air 03/08/25 21:32 Course Vital Signs Vital signs: Vital Signs Temperature 99.0 F 03/08/25 21:32 Pulse Rate 69 03/08/25 21:32 Respiratory Rate 18 03/08/25 21:32 Blood Pressure 124/82 03/08/25 21:32 Pulse Oximetry 99 03/08/25 21:32 Oxygen Delivery Method Room Air 03/08/25 21:32 Temperature 99.0 F 03/08/25 21:32 Pulse Rate 69 03/08/25 21:32 Respiratory Rate 18 03/08/25 21:32 Blood Pressure 124/82 03/08/25 21:32 Pulse Oximetry 99 03/08/25 21:32 Oxygen Delivery Method Room Air 03/08/25 21:32 Medical Decision Making MDM Narrative Medical decision making narrative: X-ray my interpretation shows no acute findings. He was recommended ice and Motrin. Treatment diagnosis and follow-up were discussed with the patient. Differential Diagnosis Differential Diagnosis: Sprain, fracture Imaging Data Right hand: My impression: No acute findings Discharge Plan Discharge Chief Complaint: Extremity Injury, Upper Clinical Impression: Finger sprain Patient Disposition: Home, Self-Care Time of Disposition Decision: 22:44 Condition: Good Mode of Transportation: Private Vehicle Prescriptions / Home Meds: No Action No Known Home Medications Print Language: Nepali Instructions: Finger Sprain (ED) Referrals: LUCIANA HER [Primary Care Provider, Family Practice] - 1 week
== END 2025-03-08 22:50 | disposition home or self-care (01) ==
PROVIDERS: Emergency Provider Emergency Medicine; PCP Family Medicine
DX: S63.616A Unspecified sprain of right little finger, initial encounter (principal); S63.614A Unspecified sprain of right ring finger, initial encounter; X58.XXXA Exposure to other specified factors, initial encounter
CPT/HCPCS: 73130; 99283